=== PATIENT | male | born 1950 | race Caucasian/White ===

== ENCOUNTER 2021-10-07 11:02 | Observation (INO) | payer SELFPAY ==
[2021-10-07] VITALS (20 sets, daily range): BP systolic 119–147; BP diastolic 61–91; PULSE 82–102; RESP 16–18; TEMP 37–37.3; O2SAT 95–100; BMI 27.3; BMI 29.2
--- NOTE | 2021-10-07 11:34 | XR_ITS ---
FINAL REPORT CLINICAL HISTORY: PAIN left tib/fib, as amputation and an abscess and bleeding , prosthetic leg he wears as well FINDINGS: LEFT TIBIA FIBULA Two views were obtained. There is no acute fracture or dislocation. There are postoperative changes from below the knee amputation. Vascular calcification is identified. No acute soft tissue abnormality is identified. IMPRESSION: Postoperative change from below the knee amputation. Reviewed, Interpreted and Dictated by Ramone Chris III, MD Transcribed by Soraya Holguin Authenticated and . [facility]
--- NOTE | 2021-10-07 11:40 | PC.NURSE ---
1140 PT MEDICATED AT THIS TIME, ICE WATER PROVIDED. NO NEEDS VOICED
--- NOTE | 2021-10-07 11:45 | PC.NURSE ---
XR AT BEDSIDE
[2021-10-07 11:49] LABS: Basophils # 0.1 K/mm3 (0-0.2); Basophils % 0.6 % (0.1-2.0); Chloride 88 mmol/L (98-107); Eosinophils # 0.1 K/mm3 (0.0-0.4); Eosinophils % 0.5 % (0.1-12.0); Hematocrit 40.5 % (42.0-52.0); Hemoglobin 13.1 g/dL (14.1-18.0); Lymphocytes # 1.6 K/mm3 (0.7-4.5); Lymphocytes % 12.3 % (10-50); Mean Corpuscular HGB Conc 32.3 g/dL (31.8-35.4); Mean Corpuscular Hemoglobin 25.3 pg (27.0-31.2); Mean Corpuscular Volume 78.3 fl (80-94); Mean Platelet Volume 7.4 fl (7.4-10.4); Monocytes # 0.8 K/mm3 (0.1-1.0); Monocytes % 5.7 % (1.7-9.3); Neutrophils # 10.5 K/mm3 (1.8-7.8); Neutrophils % 80.8 % (37.0-80.0); Platelet Count 503 K/mm3 (142-424); Red Blood Count 5.17 M/mm3 (4.60-6.20)
[2021-10-07 11:50] LABS: Sodium 128 mmol/L (136-145)
[2021-10-07 11:51] LABS: Potassium 4.1 mmoL/L (3.5-5.1)
[2021-10-07 11:52] LABS: Alanine Aminotransferase 24 U/L (12-78); Alkaline Phosphatase 191 U/L (38-126); Anion Gap 12.1 mEq/L (5-15); Aspartate Amino Transferase 24 U/L (17-59); Bilirubin,Total 0.9 mg/dl (0.2-1.3); Blood Urea Nitrogen 8 mg/dl (9-20); Carbon Dioxide 32 mmol/L (22.0-30.0); Creatinine Clearance Estimated 79 mL/min (50-200); Estimated Glomerular Filt Rate 133 ml/min (>60); GFR (African American) 161 ML/MIN (>60)
[2021-10-07 11:54] LABS: Calcium 9.7 mg/dl (8.4-10.2); Globulin 4.1 g/dL (1.3-3.2); Lactic Acid 2.5 mmol/L (0.7-2.1); Total Protein,Serum 8.1 g/dl (6.3-8.2)
[2021-10-07 11:55] LABS: Glucose 616 mg/dl (74-100)
--- NOTE | 2021-10-07 11:55 | PC.NURSE ---
1155 CRITICAL GLUCOSE 616 RECEIVED AT THIS TIME. NAME AND R/V WITH BISI FROM LAB. ED NOTIFIED. ORDERS RECEIVED
--- NOTE | 2021-10-07 12:08 | HMH.EDGENADL ---
ED Disposition Clinical Impression: Abscess of leg, left Disposition: Admitted As Inpatient Condition on Discharge: Fair - Critical Care Critical Care Time: No Attestation: On 10/07/21, the high probability of a clinically significant, sudden or life threatening deterioration of the following system(s) required my full and direct attention, intervention and personal management. The time I documented below is in addition to time spent performing reported procedures but includes the following listed in this critical care notation. Medical Decision Making - Medical Records Medical records reviewed: Yes: I reviewed the patient's medical records. - Ras Inquiry Pt receiving controlled substance: No Vital Signs: 10/07/21 11:03 10/07/21 11:15 10/07/21 11:30 Temperature 98.6 F Temperature Source Oral Pulse Rate 95 H 85 Pulse Rate [Brachial] 95 H Respiratory Rate 18 Blood Pressure 147/91 H 125/69 Blood Pressure [Right Arm] 147/91 H Blood Pressure Mean 103 87 Blood Pressure Mean [Right Arm] 109 Blood Pressure Source [Right Arm] Automatic Cuff Blood Pressure Position [Right Arm] Sitting 02 Sat by Pulse Oximetry 99 98 96 Oxygen Delivery Method Room Air 10/07/21 12:30 10/07/21 13:00 10/07/21 13:30 Temperature Temperature Source Pulse Rate 86 87 84 Pulse Rate [Brachial] Respiratory Rate Blood Pressure 119/68 129/63 119/65 Blood Pressure [Right Arm] Blood Pressure Mean 78 85 83 Blood Pressure Mean [Right Arm] Blood Pressure Source [Right Arm] Blood Pressure Position [Right Arm] 02 Sat by Pulse Oximetry 98 99 97 Oxygen Delivery Method 10/07/21 14:00 10/07/21 14:30 10/07/21 15:00 Temperature Temperature Source Pulse Rate 83 89 83 Pulse Rate [Brachial] Respiratory Rate Blood Pressure 135/72 130/68 134/61 Blood Pressure [Right Arm] Blood Pressure Mean 93 97 90 Blood Pressure Mean [Right Arm] Blood Pressure Source [Right Arm] Blood Pressure Position [Right Arm] 02 Sat by Pulse Oximetry 100 95 98 Oxygen Delivery Method Room Air 10/07/21 15:31 10/07/21 16:01 10/07/21 16:30 Temperature Temperature Source Pulse Rate 82 83 84 Pulse Rate [Brachial] Respiratory Rate Blood Pressure 137/65 138/75 138/73 Blood Pressure [Right Arm] Blood Pressure Mean 89 96 98 Blood Pressure Mean [Right Arm] Blood Pressure Source [Right Arm] Blood Pressure Position [Right Arm] 02 Sat by Pulse Oximetry 97 99 99 Oxygen Delivery Method Room Air Room Air Room Air 10/07/21 17:01 10/07/21 18:00 10/07/21 18:30 Temperature Temperature Source Pulse Rate 89 102 H 97 H Pulse Rate [Brachial] Respiratory Rate Blood Pressure 128/84 119/66 133/67 Blood Pressure [Right Arm] Blood Pressure Mean 105 88 89 Blood Pressure Mean [Right Arm] Blood Pressure Source [Right Arm] Blood Pressure Position [Right Arm] 02 Sat by Pulse Oximetry 98 100 98 Oxygen Delivery Method Room Air 10/07/21 19:00 Temperature Temperature Source Pulse Rate 98 H Pulse Rate [Brachial] Respiratory Rate Blood Pressure 137/64 Blood Pressure [Right Arm] Blood Pressure Mean 88 Blood Pressure Mean [Right Arm] Blood Pressure Source [Right Arm] Blood Pressure Position [Right Arm] 02 Sat by Pulse Oximetry 98 Oxygen Delivery Method - Lab Data Lab results reviewed: Yes: I reviewed the patient's lab results. Lab Results 10/07/21 11:20: WBC 13.0 H, RBC 5.17, Hgb 13.1 L, Hct 40.5 L, MCV 78.3 L, MCH 25.3 L, MCHC 32.3, RDW 15.0, Plt Count 503 H, MPV 7.4, Neut % (Auto) 80.8 H, Lymph % (Auto) 12.3, [place] % (Auto) 5.7, Eos % (Auto) 0.5, Baso % (Auto) 0.6, Neut # (Auto) 10.5 H, Lymph # (Auto) 1.6, [place] # (Auto) 0.8, Eos # (Auto) 0.1, Baso # (Auto) 0.1 10/07/21 11:20: Sodium 128 L, Potassium 4.1, Chloride 88 L, Carbon Dioxide 32 H, Anion Gap 12.1, BUN 8 L, Creatinine 0.60 L, Estimated Creat Clear 79, Estimated GFR 133, Est GFR ( Bonny
--- NOTE | 2021-10-07 12:10 | PC.NURSE ---
1210, PT MEDICATED PER EMAR, FAMILY AT BEDSIDE. UPDATED ON POC. NO NEEDS AT THIS TIME
--- NOTE | 2021-10-07 12:55 | PC.NURSE ---
1255 PT RESTING COMFORTABLY, IV INFUSING WITHOUT DIFFICULTY. FAMILY AT BEDSIDE. UPDATED ON POC.
--- NOTE | 2021-10-07 13:00 | PC.NURSE ---
rounded on pt at this time, mother at BS. states no needs at this time. pt currently playing on cell phone.
--- NOTE | 2021-10-07 13:03 | PC.NURSE ---
MD Shaina AT BEDSIDE TO REEVALUATE PT AND UPDATE FAMILY 1303 FSBS 501MD NOTIFIED AND LAB CALLED TO COLLECT GLUCOSE, NO NEW ORDERS
[2021-10-07 13:08] LABS: POC Glucose,Bedside 501 (70-110)
--- NOTE | 2021-10-07 13:09 | PC.NURSE ---
pop [facility] Hospitalist for consult for possible admission
[2021-10-07 13:14] LABS: Coronavirus 19, PCR Not Detected (NotDetected); Influenza A, PCR Not Detected (NotDetected); Influenza B, PCR Not Detected (NotDetected)
--- NOTE | 2021-10-07 13:25 | PC.NURSE ---
JAIDEN MAR spoke with dr. thorne hospitalist at [facility], states they would likely accept pt but they need to contact the sanitation tank washer surgeon for dr cummins and then they would contact us back. Stated if accepted pt would be placed on waiting list but they believe they will likely have a bed for pt today.
--- NOTE | 2021-10-07 13:41 | PC.NURSE ---
per ER MD verbal order vancomycin dosing and zosyn per pharmacy dosing spoke with Trevin in pharmacy Trevin suggested cefepime rather than zosyn ER okayed this.
--- NOTE | 2021-10-07 13:43 | PC.NURSE ---
per [facility] pt is on waiting list requested a face sheet
[2021-10-07 13:45] LABS: Glucose,Random 407 mg/dL (74-100)
--- NOTE | 2021-10-07 13:45 | PC.NURSE ---
Lab called and advised pt random glucose is 407. Repeated and verified with lab. Notified
--- NOTE | 2021-10-07 14:29 | HMH.PHACONS ---
- Pharmacy Consult Date: 10/07/21 Time: 14:29 Referring provider: DR. VELASCO Reason for Consult:: VANCOMYCIN DOSING Allergies and ADEs:: Allergies Allergy/AdvReac Type Severity Reaction Status Date / Time No Known Allergies Allergy Verified 10/07/21 11:33 Home Medications:: Home Medications Medication Instructions Recorded Confirmed Type Aspirin [Aspirin 81mg EC Tab] 81 mg PO DAILY 10/07/21 10/07/21 History Atorvastatin Calcium [Lipitor 40mg 40 mg PO HS 10/07/21 10/07/21 History Tablet*] Ferrous Sulfate [Ferosul] 325 mg PO DAILY 10/07/21 10/07/21 History Insulin Detemir [Levemir 18 unit SQ HS 10/07/21 10/07/21 History 100units/mL 3mL flexpen] Metformin HCl 500 mg PO BID 10/07/21 10/07/21 History Metoprolol Succinate [Metoprolol 50 mg PO BID 10/07/21 10/07/21 History Succinate 100mg Tablet*] Pantoprazole Sodium [Protonix 40mg 40 mg PO HS 10/07/21 10/07/21 History tablet] Sertraline HCl [Zoloft] 25 mg PO DAILY 10/07/21 10/07/21 History Height: 1.73 m Weight: 81.647 kg Laboratory Results:: Laboratory Results - last 24 hr 10/07/21 11:20: WBC 13.0 H, RBC 5.17, Hgb 13.1 L, Hct 40.5 L, MCV 78.3 L, MCH 25.3 L, MCHC 32.3, RDW 15.0, Plt Count 503 H, MPV 7.4, Neut % (Auto) 80.8 H, Lymph % (Auto) 12.3, [place] % (Auto) 5.7, Eos % (Auto) 0.5, Baso % (Auto) 0.6, Neut # (Auto) 10.5 H, Lymph # (Auto) 1.6, [place] # (Auto) 0.8, Eos # (Auto) 0.1, Baso # (Auto) 0.1 10/07/21 11:20: Sodium 128 L, Potassium 4.1, Chloride 88 L, Carbon Dioxide 32 H, Anion Gap 12.1, BUN 8 L, Creatinine 0.60 L, Estimated Creat Clear 79, Estimated GFR 133, Est GFR ( Amer) 161, Glucose 616 H*, Calcium 9.7, Total Bilirubin 0.9, AST 24, ALT 24, Alkaline Phosphatase 191 H, Total Protein 8.1, Albumin 4.0, Globulin 4.1 H, Albumin/Globulin Ratio 1.0 L 10/07/21 11:20: Lactate 2.5 H 10/07/21 13:01: POC Glucose 501 H* 10/07/21 13:20: Random Glucose 407 H* Assessment and Plan - Assessment and plan all Dx Assessment and Plan for all problems:: Pharmacokinetic dosing service Objective: Patient: Floor: Age: 71 yo Serum creatinine: 0.60 mg/dL Height: 68.0 Inches Weight (kg): 81.6 Assessment: IBW (kg): 68.40 Dosing wt(kg): 81.6 Estimated Creatinine clearance (ml/min): 110.8 CRCL method: Cockcroft and Gault using ibw(default). Drug selected: Vancomycin Loading dose (mg): Vd (liters): 61.2 (factor used: 0.75 L/kg) Norbert (hr-1): 0.096 Half life (hrs): 7.22 CLvanco=?? 5.875 L/hr Recommended dose: 1750 mg Interval: 12 hrs Infusion time (hrs): 2.0 Predicted peak (mcg/mL): 38.0 Predicted trough (mcg/mL): 14.55 Total body weight is being used for vancomycin dosing. Recommendations: Give Vancomycin 1750 mg q 12 hrs with an expected Cpeak of 38.0 mcg/ml and an expected Ctrough of 14.55 mcg/ml AUC 0-24 /ROSALIO Data: ROSALIO 0.5 mcg/mL:?? AUC/ROSALIO:? 1191.5 ROSALIO 1.0 mcg/mL:?? AUC/ROSALIO:? 595.7 --------- ROSALIO 1.5 mcg/mL:?? AUC/ROSALIO:? 397.2 ROSALIO 2.0 mcg/mL:?? AUC/ROSALIO:? 297.9 Thank you for the consult, will continue to follow. -ELLEN ANDERSON, ERICAD
--- NOTE | 2021-10-07 14:32 | PC.NURSE ---
spoke with family who advised they would like to stay here if possible. Calling Dr. Chou at this time. speaking with Dr. hCou at this time
--- NOTE | 2021-10-07 14:36 | PC.NURSE ---
Soraya Barrientos made rounds and helped pt with simple needs
--- NOTE | 2021-10-07 14:37 | PC.NURSE ---
ED MD SPEAKING WITH DR. GARCIA ABOUT ADMISSION. DR. GARCIA STATES HE WILL BE TO ED TO EVALUATE PT FOR ADMISSION
--- NOTE | 2021-10-07 14:40 | PC.NURSE ---
Dr. Chou at bedside
--- NOTE | 2021-10-07 14:40 | PC.NURSE ---
DR. GARCIA AT BEDSIDE
--- NOTE | 2021-10-07 14:45 | PC.NURSE ---
Notified care management of admission
--- NOTE | 2021-10-07 14:46 | PC.NURSE ---
DR GARCIA HAS AGREED TO ADMIT PT
--- NOTE | 2021-10-07 14:47 | PC.NURSE ---
Dr. Chou asked that we speak with the surgeon production control scheduler to see if they would like to consult on the patient or they would like us to consult with ortho. Calling Dr. Logan office's at this time. They advised he was in surgery, called pre-op he was not up there. Called turning sander operator and asked them to page him.
--- NOTE | 2021-10-07 14:54 | PC.NURSE ---
ELIDA MAR SPEAKING WITH DR. EUBANKS
--- NOTE | 2021-10-07 14:56 | PC.NURSE ---
requesting ortho consult. Calling Dr. Arenas office at this time
--- NOTE | 2021-10-07 14:57 | HMH.PHAINT ---
MEDICATION RECONCILIATION COMPLETED ON PATIENT USING EXTERNAL FILL HISTORY FROM PHARMACY. -ELLEN ANDERSON, ERICAD
--- NOTE | 2021-10-07 14:58 | PC.NURSE ---
Called pre-op and they advised was in surgery, asked for him to call the ER when he became available. advised she would let him know. Notified ER
--- NOTE | 2021-10-07 15:11 | PC.NURSE ---
Dr. Chou asked that we call him back after speaking with Dr. Arenas. Notified JAIDEN MAR
--- NOTE | 2021-10-07 15:15 | PC.NURSE ---
Addendum entered by Amy Meza RN 10/07/21 15:16: Both were agreeable and no new needs at this time. Original Note: Updated pt and son on POC and that we were waiting on Dr. Arenas to call us back.
[2021-10-07 15:43] LABS: Reflex Lactic Add Lactic Reflex
--- NOTE | 2021-10-07 15:43 | PC.NURSE ---
speaking with DR. Arenas at this time
--- NOTE | 2021-10-07 15:45 | PC.NURSE ---
checked on pt at this time, vancomycin started. Family at BS. Pt states no needs at this time.
--- NOTE | 2021-10-07 15:47 | PC.NURSE ---
spoke with Dr. Arenas, he requested that he come down to ED and see pt. Dr. Arenas advised he would be the consulting physician on the case and would see the patient on the floor later. I called Dr. Chou and let him know that Dr. Arenas had agreed to consult on pt and would see him on the floor and was not coming to ED at this time. Dr. Chou advised that would be ok and to proceed on with the admission.
[2021-10-07 16:42] LABS: Lactic Acid Follow Up (RFLX 1) 1.2 mmol/L (0.7-2.1)
--- NOTE | 2021-10-07 16:45 | PC.NURSE ---
per [facility] pt is boarding in ER until a bed is available.
--- NOTE | 2021-10-07 16:49 | PC.NURSE ---
[facility] called at this time with a bed assignment, notified pt of them having a bed, pt reports he does not wish to be transferred he wants to be admitted here at [facility].
--- NOTE | 2021-10-07 16:53 | PC.NURSE ---
Gave pt remote, offered warm blankets, updated him on room status. Spoke with Dr. Arenas about pt eating and he advised that he would not be doing any procedure this evening. Called dietary and ordered pt diabetic tray.
[2021-10-07 17:08] LABS: POC Glucose,Bedside 406 (70-110)
--- NOTE | 2021-10-07 17:25 | PC.NURSE ---
Pt sitting up in bed eating supper tray. Updated pt that he would be going to room 214 after room became available and was cleaned. Pt agreeable with POC and has no other needs at this time.
--- NOTE | 2021-10-07 18:09 | HMH.HP ---
*Admission Date: 10/07/21 *Chief complaint: Infection of leg *History of present illness: This 71-year-old white male diabetic presents in the emergency room at [facility] with complaints of an infected left leg. 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 This surgery was approximately 1 year ago according to the patient. The surgery was performed at [facility] by Dr. Dickinson. The patient is an insulin-dependent diabetic. He states that he is a patient of Dr. Jorge in [place]. He has been living with his son in [facility]. Dr. Chou saw the patient in the emergency room and I found the wound to be AN 8 cm circumscribed area of discoloration with central excoriation and drainage. Brownish-red drainage could be expressed by pushing around the wound. The wound is on the posterior aspect of the leg just proximal to the knee. This wound very likely could have resulted from pressure or rubbing from his prosthesis. Dr. Arenas orthopedics was notified of the patient. He plans to see him on admission. This wound will likely require incision and drainage. X-ray of the leg will also be obtained. [facility] History I have reviewed the patient's past medical history: Yes Medical History: Reports:: Diabetes Mellitus Type 2 (7 or 8 years) Denies:: Aneurysm *Have you ever received a pneumonia vaccine?: Yes *Have you received a flu vaccine this season?: Yes Other Medical History: Reports: Arthritis (hands) Laterality Cases: Left: Other (BKA) Other Surgeries: Yes: CABG (2007) Amputation: Yes (L BKA with a prosthesis) - *Social History Last grade of school completed: High school graduate Smoking Status: Never smoker Alcohol Intake: current Alcohol Intake Frequency:: holidays/special occasions only Substance Use Type: denies use *Occupational Status:: disabled (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 2 sisters. A son and a daughter. Review of Systems - Constitutional Denies body ache(s), Denies chills, Denies fever(s) - Eyes Denies change in vision - *Cardiovascular Denies chest pain - *Respiratory Denies chest congestion, Denies cough, Denies shortness of breath - *Gastrointestinal Reports constipation, Denies abdominal pain - *Genitourinary Denies difficulty urinating - Integumentary/Breasts Denies bleeding lesions - *Neurologic Denies dizziness, Denies frequent falls - Psychiatric Denies anxiety - Endocrine Denies excessive sweating - Hematologic/Lymphatic Denies easy bleeding Meds Home Medications Medication Instructions Recorded Confirmed Type Aspirin [Aspirin 81mg EC Tab] 81 mg PO DAILY 10/07/21 10/07/21 History Atorvastatin Calcium [Lipitor 40mg 40 mg PO HS 10/07/21 10/07/21 History Tablet*] Ferrous Sulfate [Ferosul] 325 mg PO DAILY 10/07/21 10/07/21 History Gabapentin [Neurontin 300mg 300 mg PO DAILY 10/07/21 10/07/21 History capsule] Insulin Detemir [Levemir 18 unit SQ DAILY 10/07/21 10/07/21 History 100units/mL 3mL flexpen] Metformin HCl 1,000 mg PO BID 10/07/21 10/07/21 History Metoprolol Tartrate [Lopressor 50 mg PO BID 10/07/21 10/07/21 History 50mg tablet] Pantoprazole Sodium [Protonix 40mg 40 mg PO HS 10/07/21 10/07/21 History tablet] Ropinirole HCl [Requip 1mg tablet] 1 mg PO HS 10/07/21 10/07/21 History Sertraline HCl [Zoloft] 25 mg PO DAILY 10/07/21 10/07/21 History Trazodone HCl 50 mg PO HS 10/07/21 10/07/21 History Allergies Allergy/AdvReac Type Severity Reaction Status Date / Time No Known Allergies Allergy Verified 10/07/21 11:33 Exam Vital signs and Labs for Last 24 Hours: Temp Pulse Resp BP Pulse Ox 98.6 F 89 18 128/84 98 10/07/21 11:03 10/07/21 17:01 10/07/21 11:03 10/07/21 17:01 10/07/21 17:01 Laboratory Results - last 24 hr 10/07/21 11:20:
--- NOTE | 2021-10-07 18:21 | PC.NURSE ---
DR. GARCIA AT BEDSIDE
--- NOTE | 2021-10-07 18:42 | PC.NURSE ---
CHECKED ON PT HE WANTED BLANKET AND IS GETTING ANXIOUS ABOUT WANTING TO GO TO HIS ROOM
--- NOTE | 2021-10-07 18:57 | PC.NURSE ---
FINGER STICK BEING DONE
--- NOTE | 2021-10-07 19:01 | PC.NURSE ---
FS 334
[2021-10-07 19:39] LABS: Hemoglobin A1C > 14.0 % (4.0-6.0)
[2021-10-07 19:44] LABS: POC Glucose,Bedside 334 (70-110)
[2021-10-07 20:44] LABS: Thyroid Stimulating Hormone 1.21 uIU/mL (0.465-4.68)
[2021-10-07 21:03] LABS: Vitamin B12 487 pg/mL (239-931)
--- NOTE | 2021-10-07 21:50 | PC.NURSE ---
pt arrived to the unit at 2054
--- NOTE | 2021-10-07 23:03 | PC.NURSE ---
pt has prosthetic leg at bedside
[2021-10-08] VITALS (21 sets, daily range): BP systolic 107–159; BP diastolic 52–76; PULSE 70–90; RESP 14–17; TEMP 36.7–43; O2SAT 94–98; BMI 29.2
--- NOTE | 2021-10-08 05:28 | PC.NURSE ---
Pt has rested well t/o the night. No complaints of pain, no fever noted. Pt L BKA redenned, weeping. Towel placed under stump. VSS. NO acute changes or distress noted. Remains NPO for ortho consult. Urinating per urinal without difficulty. Will continue to monitor.
--- NOTE | 2021-10-08 07:33 | P.CONPHA_ITS ---
[facility] Pharmacy VTE Monitoring - Patient Demographics Admission date: 10/07/21 Report Date: 10/08/21 Time: 07:33 Allergies/Adverse Reactions: Patient Allergies No Known Allergies Allergy (Verified 10/07/21 11:33) Height: 1.73 m Weight: 87.362 kg Patient Problems: Current Active Problems Cellulitis and abscess of leg (Acute) Type 2 diabetes mellitus (Acute) Peripheral vascular disease in diabetes mellitus (Acute) Hx of CABG (Acute) Abscess of leg, left (Acute) - VTE Risk Labs: VTE Related Lab Results Hgb 13.1 g/dL (14.1-18.0) L 10/07/21 11:20 Hct 40.5 % (42.0-52.0) L 10/07/21 11:20 Plt Count 503 K/mm3 (142-424) H 10/07/21 11:20 BUN 8 mg/dl (9-20) L 10/07/21 11:20 Creatinine 0.60 mg/dl (0.66-1.25) L 10/07/21 11:20 Estimated Creat Clear 79 mL/min (50-200) 10/07/21 11:20 - Prophylaxis VTE Prophylaxis Ordered?: Yes Types of VTE Prophylaxis: TEDS Knee High Location of Applied Device: Right Leg
--- NOTE | 2021-10-08 07:50 | HMH.ACPN2 ---
Internal Medicine - PN: Subj *Date: 10/08/21 *Time: 07:50 Interval history: Patient does have some left leg discomfort. He continues to drain purulent bloody drainage. He is voiding QS. He denies chest pain or shortness of breath. He eats without difficulty. Currently he is n.p.o. for orthopedic visit. Blood sugars have been running high and will increase sliding scale to high intensity. Labs have been ordered. X-ray of left tibia/fibula yesterday reveals postoperative change from below the knee amputation. Vascular calcification identified. No acute soft tissue abnormality. Exam Vital signs and Labs for Last 24 Hours: Temp Pulse Resp BP Pulse Ox 98.0 F 79 17 112/60 97 10/08/21 04:00 10/08/21 04:00 10/08/21 04:00 10/08/21 04:00 10/08/21 04:00 Laboratory Results - last 24 hr 10/07/21 11:20: WBC 13.0 H, RBC 5.17, Hgb 13.1 L, Hct 40.5 L, MCV 78.3 L, MCH 25.3 L, MCHC 32.3, RDW 15.0, Plt Count 503 H, MPV 7.4, Neut % (Auto) 80.8 H, Lymph % (Auto) 12.3, [place] % (Auto) 5.7, Eos % (Auto) 0.5, Baso % (Auto) 0.6, Neut # (Auto) 10.5 H, Lymph # (Auto) 1.6, [place] # (Auto) 0.8, Eos # (Auto) 0.1, Baso # (Auto) 0.1 10/07/21 11:20: Sodium 128 L, Potassium 4.1, Chloride 88 L, Carbon Dioxide 32 H, Anion Gap 12.1, BUN 8 L, Creatinine 0.60 L, Estimated Creat Clear 79, Estimated GFR 133, Est GFR ( Amer) 161, Glucose 616 H*, Calcium 9.7, Total Bilirubin 0.9, AST 24, ALT 24, Alkaline Phosphatase 191 H, Total Protein 8.1, Albumin 4.0, Globulin 4.1 H, Albumin/Globulin Ratio 1.0 L 10/07/21 11:20: Lactate 2.5 H 10/07/21 13:01: POC Glucose 501 H* 10/07/21 13:11: SARS-CoV-2 (PCR) Not detected, Influenza A Untype (PCR) Not detected, Influenza Type B (PCR) Not detected 10/07/21 13:20: Random Glucose 407 H* 10/07/21 13:20: Hemoglobin A1c > 14.0 H 10/07/21 13:20: Vitamin B12 487, TSH 1.21 10/07/21 16:22: Lactate 1.2 10/07/21 17:00: POC Glucose 406 H* 10/07/21 19:00: POC Glucose 334 H* I & O for Last 24 hours: Intake & Output 10/05/21 10/06/21 10/07/21 10/08/21 11:59 11:59 11:59 11:59 Intake Total 610 / 610 Output Total 800 / 800 Balance -190 / -190 Weight 180 lb 192 lb 9.6 oz Microbiology Reports for the Last 24 Hours: Microbiology 10/07/21 11:40 Leg,Left - Abscess Gram Stain - Final 10/07/21 11:40 Leg,Left - Abscess Wound Culture - Preliminary - Constitutional no acute distress Comments: Sitting up in the bed and appears comfortable - *Routine Respiratory Exam Present: CTA bilaterally (Anteriorly and posteriorly) - *Routine Cardiovascular Exam Present: RRR - *Routine Abdominal Exam Present: soft, normoactive bowel sounds. Absent: tenderness - *Routine Extremities Exam Present: edema Comments: Left leg. Draining wound noted above left popliteal. - *Routine Neurological Exam Present: alert, oriented X3 Assessment and Plan (1) Cellulitis and abscess of leg Status: Acute Category: Medical Code(s): L03.119 - Cellulitis of unspecified part of limb; L02.419 - Cutaneous abscess of limb, unspecified (2) Type 2 diabetes mellitus Status: Acute Category: Medical Code(s): E11.9 - Type 2 diabetes mellitus without complications (3) Peripheral vascular disease in diabetes mellitus Status: Acute Category: Medical Code(s): E11.51 - Type 2 diabetes mellitus with diabetic peripheral angiopathy without gangrene (4) Hx of CABG Status: Acute Category: Surgical Code(s): Z95.1 - Presence of aortocoronary bypass graft (5) History of left below knee amputation Status: Chronic Category: Medical Code(s): Z89.512 - Acquired absence of left leg below knee - Assessment and plan all Dx Assessment and Plan for all problems:: Patient is currently on IV cefepime and vancomycin. He is n.p.o. for orthopedic consult. Sliding scale increased to high intensity. Culture results are pending.
[2021-10-08 08:55] LABS: Basophils # 0.1 K/mm3 (0-0.2); Basophils % 0.5 % (0.1-2.0); Eosinophils # 0.2 K/mm3 (0.0-0.4); Eosinophils % 1.1 % (0.1-12.0); Hematocrit 35.6 % (42.0-52.0); Lymphocytes # 1.7 K/mm3 (0.7-4.5); Lymphocytes % 13.4 % (10-50); Mean Corpuscular HGB Conc 32.7 g/dL (31.8-35.4); Mean Corpuscular Hemoglobin 24.7 pg (27.0-31.2); Mean Corpuscular Volume 75.6 fl (80-94); Mean Platelet Volume 6.9 fl (7.4-10.4); Monocytes # 0.7 K/mm3 (0.1-1.0); Monocytes % 5.5 % (1.7-9.3); Neutrophils # 10.3 K/mm3 (1.8-7.8); Neutrophils % 79.5 % (37.0-80.0); Platelet Count 433 K/mm3 (142-424); Red Blood Count 4.71 M/mm3 (4.60-6.20); Red Cell Distribution Width 15.2 % (11.5-17.5)
[2021-10-08 09:00] LABS: Alanine Aminotransferase 14 U/L (12-78); Albumin/Globulin Ratio 0.9 (1.1-1.8); Alkaline Phosphatase 148 U/L (38-126); Anion Gap 10.1 mEq/L (5-15); Aspartate Amino Transferase 17 U/L (17-59); Bilirubin,Total 0.5 mg/dl (0.2-1.3); Blood Urea Nitrogen 9 mg/dl (9-20); Calcium 8.9 mg/dl (8.4-10.2); Carbon Dioxide 29 mmol/L (22.0-30.0); Chloride 94 mmol/L (98-107); Creatinine Clearance Estimated 85 mL/min (50-200); Estimated Glomerular Filt Rate 133 ml/min (>60); GFR (African American) 161 ML/MIN (>60); Globulin 3.5 g/dL (1.3-3.2); Glucose 313 mg/dl (74-100); Potassium 4.1 mmoL/L (3.5-5.1); Sodium 129 mmol/L (136-145); Total Protein,Serum 6.5 g/dl (6.3-8.2)
[2021-10-08 09:11] LABS: Hemoglobin 11.6 g/dL (14.1-18.0)
--- NOTE | 2021-10-08 09:33 | MR_ITS ---
FINAL REPORT CLINICAL HISTORY: rule out osteomyelitis, pt has wound to back of knee with drainage. 17ml prohance injected FINDINGS: Multiplanar MR imaging of the left knee was performed with and without contrast. The medial and lateral menisci are intact without evidence of meniscal tear. The anterior and posterior cruciate ligaments are intact. The medial collateral ligament and lateral ligamentous complex are intact. The patellar and quadriceps tendons are intact. There is no evidence of fracture. No focal abnormality is identified of the articular cartilage. No significant joint effusion is seen. There is a posterior collection of fluid with peripheral contrast enhancement posterior to the semimembranosus muscle. Collection measures 8.8 by 3.8 x 0.9 cm and could represent a seroma, chronic hematoma, or abscess. A small knee joint effusion is present. There is abnormal signal and contrast enhancement in the posterior semimembranosus muscle which is likely inflammatory. IMPRESSION: Posterior collection of fluid with peripheral contrast enhancement may represent a seroma, chronic hematoma, or abscess. Abnormal signal and contrast enhancement of the posterior semimembranosus muscle is likely inflammatory. Reviewed, Interpreted and Dictated by Ramone Chris III, MD Transcribed by Per Tiwari Authenticated and [facility]
[2021-10-08 09:36] LABS: Erythrocyte Sedimentation Rate 61 mm/hr (0-20)
[2021-10-08 09:56] LABS: C-Reactive Protein 214.3 mg/L (0-4)
--- NOTE | 2021-10-08 10:28 | HMH.ORTHOCON ---
*Admission Date: 10/07/21 <Teresa Seo 10/08/21 10:29> *Reason for consult:: left leg wound, cellulitis <Teresa Seo 10/08/21 10:29> *History of present illness: Mr. Vergara is a 71-year-old male who presented to the [facility] emergency department secondary to increased drainage/an open wound present on the posterior aspect of his left residual limb. He is status post left below the knee amputation that he states was performed approximately 1 year ago at [facility] in [place], [place] by Dr. Dickinson secondary to complications with poor wound healing. He reports that he is unsure of how long the wound has been present, however he is noticed purulent drainage coming from the back of his knee for the past 3-4 days. He denies any history of fevers, chills, or rigors. At baseline he ambulates with the use of a prosthetic limb that he was fitted for by [facility] in [place], [place]. He reports that he had adjustments made to his prosthesis approximately 1 week ago. He lives with his son in [place]. His primary care physician is Dr. Jorge in [place]. His past medical history is significant for insulin-dependent diabetes mellitus, peripheral vascular disease, and CABG performed in 2007. He is a non-smoker. He has not had anything to eat or drink since yesterday evening. He denies any other symptoms or concerns at this time. <Teresa Seo 10/08/21 10:45> [facility] History Medical History: Reports:: Diabetes Mellitus Type 2 (7 or 8 years), Peripheral Vascular Disease Denies:: Aneurysm <Teresa Seo 10/08/21 10:29> *Have you ever received a pneumonia vaccine?: Yes <Teresa Seo 10/08/21 10:29> *Have you received a flu vaccine this season?: Yes <Teresa Seo 10/08/21 10:29> Other Medical History: Reports: Arthritis (hands) <Teresa Seo 10/08/21 10:29> Laterality Cases: Left: Other (BKA) <Teresa Seo 10/08/21 10:29> Other Surgeries: Yes: CABG (2007) <Teresa Seo 10/08/21 10:29> Amputation: Yes (L BKA with a prosthesis) <Teresa Seo 10/08/21 10:29> - *Social History Last grade of school completed: High school graduate <Tereas Seo 10/08/21 10:29> Smoking Status: Never smoker <Teresa Seo 10/08/21 10:29> Alcohol Intake: current <Teresa Seo 10/08/21 10:29> Alcohol Intake Frequency:: holidays/special occasions only <Teresa Seo 10/08/21 10:29> Substance Use Type: denies use <Teresa Seo 10/08/21 10:29> *Occupational Status:: disabled (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[employer]) <Teresa Seo 10/08/21 10:29> *Travel in the last 8 weeks: None <Teresa Seo 10/08/21 10:29> Family Hx:: Diabetes (Father), Heart Attack (Father) <Teresa Seo 10/08/21 10:29> Review of Systems - Review of Systems Review of systems:: pertinent systems reviewed and negative unless documented below <Teresa Seo 10/08/21 10:45> - Constitutional Denies anorexia, Denies body ache(s), Denies chills, Denies fatigue, Denies fever(s), Denies malaise, Denies night sweats <Teresa Seo 10/08/21 10:45> - Eyes Denies change in vision <Teresa Seo 10/08/21 10:45> - ENT Denies poor balance, Denies dizziness, Denies nasal congestion, Denies neck pain, Denies sore throat <Teresa Seo 10/08/21 10:45> - *Cardiovascular Denies chest pain, Denies chest pain at rest, Denies shortness of breath, Denies shortness of breath with activity, Denies radiating jaw, neck or arm pain <Teresa Seo 10/08/21 10:45> - *Respiratory Denies chest congestion, Denies cough, Denies shortness of breath, Denies pain on inspiration, Denies pain with cough, Denies wheezing <Teresa Seo - 10/08/21 10:45> - *Gastrointestinal Denies abdominal pain, Denies change in bowel habits, Denies change in stools, Denies constipation, Denies loose stools, Denies loose stools, Denies nausea, Denies vomi
[2021-10-08 12:07] LABS: POC Glucose,Bedside 355 (70-110)
--- NOTE | 2021-10-08 16:19 | SUR.PREOP ---
1545- pt straight to OR from his room 210 at this time.
--- NOTE | 2021-10-08 17:02 | HMH.ANESCL ---
[facility] Anesthesia Checklist - Patient Identification Patient Identification: Arm Band - Structural Data Admitted From: Home Planned Operative Procedure/s: I&D Left Lower Extremity Abscess Consent for Planned Operative Procedure(s) Verified: Yes Verified Documents: Surgical Consent, History and Physical - NPO Status Verified Time NPO: 00:00 - Additional verifications Anesthesia Reactions: No - Airway Assessment C-Spine Mobility Assessed: Yes (mp2) TMJ Mobility Assessed: Yes Dentition: Poor Dentition - Neurological Assessment Level of Consciousness: Awake, Alert - Anesthesia Plan Anesthesia Risk discussed: Yes Anesthesia Plan: Verified ASA Class: III Anesthesia Type: General [facility] History I have reviewed the patient's past medical history: Yes Medical History: Reports:: Diabetes Mellitus Type 2 (7 or 8 years), Peripheral Vascular Disease Denies:: Aneurysm *Have you ever received a pneumonia vaccine?: Yes *Have you received a flu vaccine this season?: Yes Other Medical History: Reports: Arthritis (hands) Anesthesia experience/problems:: nac Laterality Cases: Left: Other (BKA) Other Surgeries: Yes: CABG (2007) Amputation: Yes (L BKA with a prosthesis) - *Social History Last grade of school completed: High school graduate Smoking Status: Never smoker Alcohol Intake: current Alcohol Intake Frequency:: holidays/special occasions only Substance Use Type: denies use *Occupational Status:: disabled (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
--- NOTE | 2021-10-08 17:03 | P.PN_ITS ---
[facility] Anesthesia Record Part I Intake, IV Amount: 400 Estimated blood loss (mL): 10 Urine output (mL): 0 Blood Pressure: 139/61 SaO2: 97 Pulse Rate: 74 Respiratory Rate: 16 Temperature: 98.3 F Patient is:: Drowsy, Stable Stable to PACU at:: 16:55
[2021-10-08 17:14] LABS: POC Glucose,Bedside 191 (70-110)
--- NOTE | 2021-10-08 17:20 | HMH.OPNOTE ---
Date of procedure: 10/08/21 Pre-op Diagnosis:: Abscess, left thigh Post-op Diagnosis:: Same Procedure performed:: Incision and drainage/debridement abscess, left thigh Surgeon:: Ricki Arenas MD Corporate Compliance Officer(s):: Teresa Seo PA-C FORTUNE TELLER:: Rob Bergman Anesthesia: GETA Estimated blood loss (mL): 10 Clinical Note:: Patient is a 71-year-old male patient with multiple medical problems admitted to hospital for management of abscess/cellulitis over the posterior aspect of the left distal thigh. Patient states that he developed pain and swelling with discharging wound over the posterior aspect of the left distal thigh about 3 days ago. He was seen in the ER yesterday and was admitted to hospital for further management. Patient was started on IV antibiotics after admission. No history of any fevers, chills, or rigors. He is status post left below the knee amputation that he states was performed approximately 1 year ago at [facility] in [place], [place] by Dr. Dickinson secondary to complications with poor wound healing. At baseline he ambulates with the use of a prosthetic limb that he was fitted for by [facility] in [place], [place]. He reports that he had problems with the prosthetic limb with the top of the prosthetic rubbing/causing irritation of skin over the posterior aspect of the thigh. He reports that he had adjustments made to his prosthesis about 1 week ago. He reports that he is unsure of how long the wound has been present but states he has noticed purulent drainage coming from the back of his knee for the past 3-4 days. He denies any history of fevers, chills, or rigors. He lives with his son in [facility]. His primary care physician is Dr. Jorge in [place]. Patient is a known diabetic which is poorly controlled. His past medical history is significant for insulin-dependent diabetes mellitus, peripheral vascular disease, and CABG performed in 2007. He is a non-smoker. Evaluation confirmed a chronic appearing wound measuring about 2 x 2 cm over the posterior aspect of the distal thigh over the medial hamstrings. There were unhealthy granulation tissue over the wound with purulent drainage. There was surrounding erythema, tenderness and swelling over the posterior aspect of the distal left thigh and associated with cellulitis. Imaging of his lower extremity showed soft tissue swelling without any bony involvement. He was admitted for management of the same including IV antibiotics and incision and drainage/debridement. Incision and drainage/debridement of the abscess is indicated to treat the infection, improve the pain and function and is the standard of care for his management. Please refer to orthopedic consult note for full details. Operative findings:: A chronic appearing wound over the posterior aspect of the distal thigh overlying the medial hamstring tendons. The edges of the skin were adherent to the deep tissue with the unhealthy granulation tissue over the base. Active pus drainage was noted coming from the proximal aspect of the wound. After making an incision extending proximally, a large abscess cavity was noted, extending proximally along the medial hamstring muscles/tendons. About 10-15 cc of joesph pus was drained. The semitendinosus tendon was completely torn, infected and necrotic. Both ends of the torn and necrotic tendon were excised. The cavity is extending proximally through the subcutaneous and along the medial hamstring tendons/muscles. There is extensive soft tissue swelling and induration and cellulitis over the distal thigh. No obvious bone or joint involvement is noted. Operative note:: On the day of the procedure the patient was met on the floor, and I have discussed the diagnosis, natural history and management options in detail including both nonsurgical and surgical. Patient opted for surgical remediation in the form of incision and drainage of the abscess. I have discuss
--- NOTE | 2021-10-08 17:32 | SUR.PHASEI ---
1725- detailed report called to neida walls on [facility] floor. pt left in room, in stable condition.
--- NOTE | 2021-10-08 17:34 | SUR.PHASEI ---
1655- pt blood sugar at this time taken via finger stick is 191.
--- NOTE | 2021-10-08 19:45 | PC.NURSE ---
since obtaining care of this patient he has done well. no complaints this shift. appetite is good tolerating his diabetic diet well. needs assistance with transfers. dressing intact from surgery. new iv placed in r forearm 20 gauge.
[2021-10-09] VITALS (8 sets, daily range): BP systolic 115–136; BP diastolic 47–76; PULSE 69–87; RESP 14–18; TEMP 36.5–36.8; O2SAT 95–99; BMI 28.9
--- NOTE | 2021-10-09 04:00 | PC.NURSE ---
pt rested well through the night with no reported pain to operative side, left stump with paresh wrap/dressing CDI s/p I&D; VSS post operativel; pt is alert and oriented x4; lungs clear to diminished, no other issues or concerns at this time.
[2021-10-09 05:18] LABS: POC Glucose,Bedside 329 (70-110)
[2021-10-09 06:59] LABS: POC Glucose,Bedside 264 (70-110)
--- NOTE | 2021-10-09 07:41 | P.PN_ITS ---
[facility] Anesthesia Record Part II Discharge Time: 17:25 Destination: Medical Surgical Department PACU nurse assessment reviewed?: Yes Patient Condition:: Good Anesthesia Complications:: None Swallowing reflex intact?: Yes Cyanosis?: No Blood Pressure: 115/76 Pulse Rate: 84 Temperature: 98.2 F Mental Status: Alert & Oriented Pain level:: 0 Nausea and/or vomitting:: None Intake, IV Amount: 0
[2021-10-09 07:49] LABS: Basophils # 0.1 K/mm3 (0-0.2); Basophils % 0.4 % (0.1-2.0); Eosinophils # 0.1 K/mm3 (0.0-0.4); Eosinophils % 0.7 % (0.1-12.0); Hematocrit 35.5 % (42.0-52.0); Hemoglobin 11.2 g/dL (14.1-18.0); Lymphocytes % 14.2 % (10-50); Mean Corpuscular HGB Conc 31.5 g/dL (31.8-35.4); Mean Corpuscular Hemoglobin 24.1 pg (27.0-31.2); Mean Corpuscular Volume 76.4 fl (80-94); Mean Platelet Volume 6.7 fl (7.4-10.4); Monocytes # 0.8 K/mm3 (0.1-1.0); Monocytes % 5.4 % (1.7-9.3); Neutrophils # 11.4 K/mm3 (1.8-7.8); Neutrophils % 79.4 % (37.0-80.0); Platelet Count 485 K/mm3 (142-424); Red Blood Count 4.65 M/mm3 (4.60-6.20); Red Cell Distribution Width 15.2 % (11.5-17.5); White Blood Count 14.4 K/mm3 (4.8-10.8)
[2021-10-09 07:59] LABS: Anion Gap 10.1 mEq/L (5-15); Blood Urea Nitrogen 14 mg/dl (9-20); Calcium 9.1 mg/dl (8.4-10.2); Carbon Dioxide 31 mmol/L (22.0-30.0); Chloride 94 mmol/L (98-107); Creatinine Clearance Estimated 84 mL/min (50-200); Estimated Glomerular Filt Rate 111 ml/min (>60); GFR (African American) 135 ML/MIN (>60); Glucose 250 mg/dl (74-100); Potassium 4.1 mmoL/L (3.5-5.1); Sodium 131 mmol/L (136-145)
--- NOTE | 2021-10-09 08:33 | HMH.ACPN2 ---
Internal Medicine - PN: Subj *Date: 10/09/21 *Time: 08:33 Interval history: Patient states he is feeling a bit better this morning. He denies any pain and states he slept well last night and ate breakfast this morning. Exam Vital signs and Labs for Last 24 Hours: Temp Pulse Resp BP Pulse Ox 98.2 F 84 14 115/76 95 10/09/21 07:42 10/09/21 07:42 10/09/21 03:59 10/09/21 07:42 10/09/21 03:59 Laboratory Results - last 24 hr 10/08/21 08:00: C-Reactive Protein 214.3 H 10/08/21 08:12: WBC 13.0 H, RBC 4.71, Hgb 11.6 L D, Hct 35.6 L, MCV 75.6 L, MCH 24.7 L, MCHC 32.7, RDW 15.2, Plt Count 433 H, MPV 6.9 L, Neut % (Auto) 79.5, Lymph % (Auto) 13.4, Mcculloch % (Auto) 5.5, Eos % (Auto) 1.1, Baso % (Auto) 0.5, Neut # (Auto) 10.3 H, Lymph # (Auto) 1.7, Mcculloch # (Auto) 0.7, Eos # (Auto) 0.2, Baso # (Auto) 0.1 10/08/21 08:12: ESR 61 H 10/08/21 08:12: Sodium 129 L, Potassium 4.1, Chloride 94 L, Carbon Dioxide 29, Anion Gap 10.1, BUN 9, Creatinine 0.60 L, Estimated Creat Clear 85, Estimated GFR 133, Est GFR ( Amer) 161, Glucose 313 H D, Calcium 8.9, Total Bilirubin 0.5, AST 17 D, ALT 14 D, Alkaline Phosphatase 148 H, Total Protein 6.5, Albumin 3.0 L D, Globulin 3.5 H, Albumin/Globulin Ratio 0.9 L 10/08/21 11:36: POC Glucose 355 H* 10/08/21 17:07: POC Glucose 191 H 10/08/21 21:04: POC Glucose 329 H* 10/09/21 06:38: POC Glucose 264 H 10/09/21 07:35: WBC 14.4 H, RBC 4.65, Hgb 11.2 L, Hct 35.5 L, MCV 76.4 L, MCH 24.1 L, MCHC 31.5 L, RDW 15.2, Plt Count 485 H, MPV 6.7 L, Neut % (Auto) 79.4, Lymph % (Auto) 14.2, Mcculloch % (Auto) 5.4, Eos % (Auto) 0.7, Baso % (Auto) 0.4, Neut # (Auto) 11.4 H, Lymph # (Auto) 2.0, Mcculloch # (Auto) 0.8, Eos # (Auto) 0.1, Baso # (Auto) 0.1 10/09/21 07:35: Sodium 131 L, Potassium 4.1, Chloride 94 L, Carbon Dioxide 31 H, Anion Gap 10.1, BUN 14 D, Creatinine 0.70, Estimated Creat Clear 84, Estimated GFR 111, Est GFR ( Amer) 135, Glucose 250 H D, Calcium 9.1 I & O for Last 24 hours: Intake & Output 10/06/21 10/07/21 10/08/21 10/09/21 11:59 11:59 11:59 11:59 Intake Total 610 / 610 1239 / 1239 Output Total 1600 / 1600 150 / 150 Balance -990 / -990 1089 / 1089 Weight 180 lb 192 lb 9.6 oz 190 lb 14.4 oz Microbiology Reports for the Last 24 Hours: Microbiology 10/08/21 16:15 Thigh - Left Gram Stain - Final 10/08/21 16:15 Thigh - Left Abscess Culture - Preliminary 10/07/21 11:40 Leg,Left - Abscess Gram Stain - Final 10/07/21 11:40 Leg,Left - Abscess Wound Culture - Preliminary - Constitutional no acute distress - *Routine Respiratory Exam Present: CTA bilaterally - *Routine Cardiovascular Exam Present: RRR - *Routine Abdominal Exam Present: soft, normoactive bowel sounds. Absent: tenderness - *Routine Extremities Exam Absent: cyanosis, clubbing, edema Comments: Left BKA with dressing in place - *Routine Skin Exam Present: warm. Absent: rash - *Routine Neurological Exam Present: alert, oriented X3 Assessment and Plan (1) Cellulitis and abscess of leg Status: Acute Category: Medical Code(s): L03.119 - Cellulitis of unspecified part of limb; L02.419 - Cutaneous abscess of limb, unspecified (2) Type 2 diabetes mellitus Status: Acute Category: Medical Code(s): E11.9 - Type 2 diabetes mellitus without complications (3) Peripheral vascular disease in diabetes mellitus Status: Acute Category: Medical Code(s): E11.51 - Type 2 diabetes mellitus with diabetic peripheral angiopathy without gangrene (4) Hx of CABG Status: Acute Category: Surgical Code(s): Z95.1 - Presence of aortocoronary bypass graft (5) History of left below knee amputation Status: Chronic Category: Medical Code(s): Z89.512 - Acquired absence of left leg below knee - Assessment and plan all Dx Assessment and Plan for all problems:: Patient had I&D of left leg abscess yesterday by Dr. Arenas. Awaiting culture results. Ortho to follow.
[2021-10-09 12:29] LABS: POC Glucose,Bedside 291 (70-110)
--- NOTE | 2021-10-09 13:12 | HMH.ORTHPN ---
Subjective Date: 10/09/21 Time: 12:30 Principal diagnosis: left thigh abscess Interval history: Mr. Vergara is a 71-year-old male admitted to the acute inpatient service who underwent an uneventful incision and drainage/debridement of his left thigh abscess yesterday 10/08/[address] Arenas. Today the patient is postop day #1. This afternoon the patient is lying comfortably in bed. He reports some pain in his left thigh but states that it is well controlled with as needed pain medication and rest. He is eating and drinking well and denies any episodes of nausea or vomiting. No history of fevers, chills, or rigors. He denies any other symptoms or concerns at this time. PN: Obj Ex Vital signs: Temp Pulse Resp BP Pulse Ox 97.8 F 87 16 119/50 L 99 10/09/21 08:00 10/09/21 08:00 10/09/21 08:00 10/09/21 08:00 10/09/21 08:00 - Constitutional no acute distress, cooperative - Routine HEENT Exam Head: Present: normocephalic, atraumatic Eye: Present: EOMI, PERRL ENT: Present: mucous membranes moist - Routine Neck Exam Present: supple, full ROM, trachea midline. Absent: JVD, lymphadenopathy - Routine Respiratory Exam Absent: accessory muscle use, respiratory distress Comments: Symmetric chest movement, able to speak in complete sentences - Routine Cardiovascular Exam Present: RRR Comments: Normal peripheral pulses - Routine Abdominal Exam Present: soft. Absent: tenderness - Routine Extremities Exam Comments: Upon examination of the left residual limb: Dressings present are clean, dry, and intact. No evidence of drainage or bleeding noted. Thigh is soft and nontender. Patient is able to actively flex and extend the knee joint. The distal flap appears pink, warm, and well-perfused. - Routine Skin Exam Present: intact, warm, normal turgor. Absent: cyanosis, erythema, lesions, jaundice - Routine Neurological Exam Present: alert, oriented X3, CN II-XII intact, moving all extremities, normal tone, normal speech. Absent: sensory deficit, motor deficit, altered mental status - Routine Psychiatric Exam Present: normal affect, cooperative Progress Note: A&P (1) Cellulitis and abscess of leg Status: Acute (2) Type 2 diabetes mellitus Status: Acute (3) Peripheral vascular disease in diabetes mellitus Status: Acute (4) Hx of CABG Status: Acute (5) History of left below knee amputation Status: Chronic Assessment and Plan for All Diagnoses:: Rounded with Dr. Arenas; we have reviewed the clinical findings and progress with the patient. Overall he is doing well this afternoon from an orthopedic standpoint. Recommend continuation of IV antibiotics and await culture results for any changes to the antibiotic regimen as needed. Continue elevation, ice, and as needed pain medication. All questions were answered and the patient verbalized good understanding. Continue medical management as per Dr. Chou.
--- NOTE | 2021-10-09 15:23 | PC.NURSE ---
patient has done well this shift. some concerns in regards to transferring to bathroom. per md patient dressing will be changed tomorrow by him and then it will need to be changed every few days after that. dressing remains clean dry and intact. no complaints of pain. rings out as needed.
--- NOTE | 2021-10-09 16:23 | PC.NURSE ---
Received report from Apolinar Silver RN. Rounded on pt, no needs at this time. FSBS was 167, pt received 5 units of Humalog per SSI.
[2021-10-09 22:05] LABS: POC Glucose,Bedside 140 (70-110)
[2021-10-10] VITALS: BP 130/52; PULSE 74; RESP 16; TEMP 36.6; O2SAT 97
[2021-10-10 03:39] LABS: POC Glucose,Bedside 254 (70-110)
[2021-10-10 03:39] LABS: POC Glucose,Bedside 167 (70-110)
[2021-10-10 04:00] VITALS: BP 128/57; PULSE 82; RESP 16; TEMP 36.6; O2SAT 95
--- NOTE | 2021-10-10 04:20 | PC.NURSE ---
Pt is alert and oriented x4, pt has used the urinal independently this shift. Pt has had no complaints of pain this shift. Pt is tolerating room air with O2 sats >90%. Dressing and wrap on left thigh is CDI. Redness and swelling noted to scrotum, pt reports discomfort to the area, ice pack applied, pt reports no more discomfort.
[2021-10-10 05:18] VITALS: BMI 29.2
[2021-10-10 08:00] VITALS: BP 118/58; PULSE 85; RESP 16; TEMP 37.1; O2SAT 95
--- NOTE | 2021-10-10 08:41 | HMH.ACPN2 ---
Internal Medicine - PN: Subj *Date: 10/10/21 *Time: 08:41 Interval history: Patient denies any pain this morning. He states he slept well and ate well. He has having a significant amount of drainage through the Lewis bandage. He states his bandage was not changed yesterday. Exam Vital signs and Labs for Last 24 Hours: Temp Pulse Resp BP Pulse Ox 98.8 F 85 16 118/58 L 95 10/10/21 08:00 10/10/21 08:00 10/10/21 08:00 10/10/21 08:00 10/10/21 08:00 Laboratory Results - last 24 hr 10/08/21 17:36: POC Glucose 291 H 10/09/21 12:04: POC Glucose 254 H 10/09/21 16:19: POC Glucose 167 H 10/09/21 20:19: POC Glucose 140 H I & O for Last 24 hours: Intake & Output 10/07/21 10/08/21 10/09/21 10/10/21 11:59 11:59 11:59 11:59 Intake Total 610 / 610 1479 / 1479 2307 / 2307 Output Total 1600 / 1600 570 / 570 2380 / 2380 Balance -990 / -990 909 / 909 -73 / -73 Weight 180 lb 192 lb 9.6 oz 190 lb 14.4 oz 192 lb 11.2 oz Microbiology Reports for the Last 24 Hours: Microbiology 10/07/21 11:40 Leg,Left - Abscess Gram Stain - Final 10/07/21 11:40 Leg,Left - Abscess Wound Culture - Preliminary Gram Positive Cocci 10/08/21 16:15 Thigh - Left Gram Stain - Final 10/08/21 16:15 Thigh - Left Abscess Culture - Preliminary Gram Positive Cocci 10/07/21 11:20 Blood Blood Culture - Preliminary NO GROWTH AFTER 48 HOURS 10/07/21 11:20 Blood Blood Culture - Preliminary NO GROWTH AFTER 48 HOURS - Constitutional no acute distress - *Routine Respiratory Exam Present: CTA bilaterally - *Routine Cardiovascular Exam Present: RRR - *Routine Abdominal Exam Present: soft, normoactive bowel sounds. Absent: tenderness - *Routine Extremities Exam Absent: edema - *Routine Skin Exam Present: warm. Absent: rash Comments: Left BKA, Lewis bandage with significant amount of drainage on the posterior aspect - *Routine Neurological Exam Present: alert, oriented X3 Assessment and Plan (1) Cellulitis and abscess of leg Status: Acute Category: Medical Code(s): L03.119 - Cellulitis of unspecified part of limb; L02.419 - Cutaneous abscess of limb, unspecified (2) Type 2 diabetes mellitus Status: Acute Category: Medical Code(s): E11.9 - Type 2 diabetes mellitus without complications (3) Peripheral vascular disease in diabetes mellitus Status: Acute Category: Medical Code(s): E11.51 - Type 2 diabetes mellitus with diabetic peripheral angiopathy without gangrene (4) Hx of CABG Status: Acute Category: Surgical Code(s): Z95.1 - Presence of aortocoronary bypass graft (5) History of left below knee amputation Status: Chronic Category: Medical Code(s): Z89.512 - Acquired absence of left leg below knee - Assessment and plan all Dx Assessment and Plan for all problems:: Final wound culture still pending. Ortho to follow.
[2021-10-10 09:50] VITALS: BMI 29.0
[2021-10-10 11:45] LABS: Anion Gap 9.4 mEq/L (5-15); Blood Urea Nitrogen 12 mg/dl (9-20); Calcium 8.9 mg/dl (8.4-10.2); Carbon Dioxide 26 mmol/L (22.0-30.0); Chloride 98 mmol/L (98-107); Creatinine Clearance Estimated 85 mL/min (50-200); Estimated Glomerular Filt Rate 111 ml/min (>60); GFR (African American) 135 ML/MIN (>60); Glucose 176 mg/dl (74-100); Potassium 4.4 mmoL/L (3.5-5.1); Sodium 129 mmol/L (136-145)
[2021-10-10 12:00] VITALS: BP 119/62; PULSE 77; RESP 16; TEMP 36.6; O2SAT 99
[2021-10-10 12:35] LABS: POC Glucose,Bedside 164 (70-110)
--- NOTE | 2021-10-10 12:44 | PC.NURSE ---
Addendum entered by Nolvia rBuce RN 10/10/21 17:18: PT IS SITTING UP IN THE CHAIR EATING DINNER AT THIS TIME. BATH AND LINEN CHANGE THIS SHIFT. Original Note: PT IS SITTING UP IN THE BED EATING AT THIS TIME. NO COMPLAINTS OF DISCOMFORT. ALERT AND ORIENTED X4. EATING AND DRINKING WELL. DRESSING WAS CHANGED PER THIS SHIFT. PT HAD REDNESS NOTED TO THE SCROTAL/KIKI AREA AREA. NYSTATIN APPLIED. LUNG SOUNDS CLEAR. ABDOMEN SOFT/NON TENDER WITH ACTIVE BOWEL SOUNDS. WILL CONTINUE TO MONITOR.
--- NOTE | 2021-10-10 14:00 | HMH.ORTHPN ---
Subjective Date: 10/10/21 Time: 12:30 Principal diagnosis: left thigh abscess Interval history: Mr. Vergara is a 71-year-old male admitted to the acute inpatient service who underwent an uneventful incision and drainage/debridement of his left thigh abscess on 10/08/[address] Arenas. Today the patient is postop day #2. This afternoon the patient is lying comfortably in bed. He reports some pain in his left thigh but states that it is well controlled with as needed pain medication and rest. He is eating and drinking well and denies any episodes of nausea or vomiting. No history of fevers, chills, or rigors. He denies any other symptoms or concerns at this time. PN: Obj Ex Vital signs: Temp Pulse Resp BP Pulse Ox 97.9 F 77 16 119/62 99 10/10/21 12:00 10/10/21 12:00 10/10/21 12:00 10/10/21 12:00 10/10/21 12:00 - Constitutional no acute distress, cooperative - Routine HEENT Exam Head: Present: normocephalic, atraumatic Eye: Present: EOMI, PERRL ENT: Present: mucous membranes moist - Routine Neck Exam Present: supple, full ROM, trachea midline. Absent: JVD, lymphadenopathy - Routine Respiratory Exam Absent: accessory muscle use, respiratory distress Comments: Symmetric chest movement, able to speak in complete sentences - Routine Cardiovascular Exam Present: RRR Comments: Normal peripheral pulses - Routine Abdominal Exam Present: soft. Absent: tenderness - Routine Extremities Exam Comments: Upon examination of the left residual limb: Dressings present are clean, dry, and intact. Out of the dressings, the surgical incision is healing well. Thigh is soft and nontender. Patient is able to actively flex and extend the knee joint. The distal flap appears pink, warm, and well-perfused. - Routine Skin Exam Present: intact, warm, normal turgor. Absent: cyanosis, erythema, lesions, jaundice - Routine Neurological Exam Present: alert, oriented X3, CN II-XII intact, moving all extremities, normal tone, normal speech. Absent: sensory deficit, motor deficit, altered mental status - Routine Psychiatric Exam Present: normal affect, cooperative Progress Note: A&P (1) Cellulitis and abscess of leg Status: Acute (2) Type 2 diabetes mellitus Status: Acute (3) Peripheral vascular disease in diabetes mellitus Status: Acute (4) Hx of CABG Status: Acute (5) History of left below knee amputation Status: Chronic Assessment and Plan for All Diagnoses:: Rounded with Dr. Arenas; we have reviewed the clinical findings and progress with the patient. Overall he is doing well this afternoon from an orthopedic standpoint. We have changed her surgical dressing and the surgical incision is healthy and healing well. We have removed the surgical packing gauze and redressed the wound with nonadherent dressings. Recommend continuation of IV antibiotics and await culture results for any changes to the antibiotic regimen as needed. Continue elevation, ice, and as needed pain medication. All questions were answered and the patient verbalized good understanding. Continue medical management as per Dr. Chou.
[2021-10-10 15:47] LABS: Vancomycin,Peak 47.3 ug/ml (11-39)
[2021-10-10 16:00] VITALS: BP 130/70; PULSE 80; RESP 16; TEMP 36.7; O2SAT 100
--- NOTE | 2021-10-10 16:11 | HMH.PHACONS ---
- Pharmacy Consult Date: 10/10/21 Time: 16:11 Referring provider: DR. GARCIA Reason for Consult:: VANCOMYCIN DOSING Allergies and ADEs:: Allergies Allergy/AdvReac Type Severity Reaction Status Date / Time No Known Allergies Allergy Verified 10/07/21 11:33 Home Medications:: Home Medications Medication Instructions Recorded Confirmed Type Aspirin [Aspirin 81mg EC Tab] 81 mg PO DAILY 10/07/21 10/07/21 History Atorvastatin Calcium [Lipitor 40mg 40 mg PO HS 10/07/21 10/07/21 History Tablet*] Ferrous Sulfate [Ferosul] 325 mg PO DAILY 10/07/21 10/07/21 History Gabapentin [Neurontin 300mg 300 mg PO DAILY 10/07/21 10/07/21 History capsule] Insulin Detemir [Levemir 18 unit SQ DAILY 10/07/21 10/07/21 History 100units/mL 3mL flexpen] Metformin HCl 1,000 mg PO BID 10/07/21 10/07/21 History Metoprolol Tartrate [Lopressor 50 mg PO BID 10/07/21 10/07/21 History 50mg tablet] Pantoprazole Sodium [Protonix 40mg 40 mg PO HS 10/07/21 10/07/21 History tablet] Ropinirole HCl [Requip 1mg tablet] 1 mg PO HS 10/07/21 10/07/21 History Sertraline HCl [Zoloft] 25 mg PO DAILY 10/07/21 10/07/21 History Height: 1.73 m Weight: 87 kg Laboratory Results:: Laboratory Results - last 24 hr 10/09/21 12:04: POC Glucose 254 H 10/09/21 16:19: POC Glucose 167 H 10/09/21 20:19: POC Glucose 140 H 10/10/21 11:03: Vancomycin Trough 16.0 H 10/10/21 11:03: Sodium 129 L, Potassium 4.4, Chloride 98, Carbon Dioxide 26, Anion Gap 9.4, BUN 12, Creatinine 0.70, Estimated Creat Clear 85, Estimated GFR 111, Est GFR ( Amer) 135, Glucose 176 H, Calcium 8.9 10/10/21 11:43: POC Glucose 164 H 10/10/21 15:10: Vancomycin Peak 47.3 H* Medical History: Reports:: Diabetes Mellitus Type 2 (7 or 8 years), Peripheral Vascular Disease Denies:: Aneurysm Assessment and Plan (1) Cellulitis and abscess of leg Status: Acute Category: Medical Code(s): L03.119 - Cellulitis of unspecified part of limb; L02.419 - Cutaneous abscess of limb, unspecified (2) Type 2 diabetes mellitus Status: Acute Category: Medical Code(s): E11.9 - Type 2 diabetes mellitus without complications (3) Peripheral vascular disease in diabetes mellitus Status: Acute Category: Medical Code(s): E11.51 - Type 2 diabetes mellitus with diabetic peripheral angiopathy without gangrene (4) Hx of CABG Status: Acute Category: Surgical Code(s): Z95.1 - Presence of aortocoronary bypass graft (5) History of left below knee amputation Status: Chronic Category: Medical Code(s): Z89.512 - Acquired absence of left leg below knee - Assessment and plan all Dx Assessment and Plan for all problems:: PATEINT'S VANCOMYCIN TROUGH AND PEAK LEVELS WERE 16.0 MCG/ML AND 47.3 MCG/ML, RESPECTIVELY. PEAK LEVEL WAS DRAWN SHORTLY AFTER DOSE WAS FINISHED. RECOMMEND AT THIS TIME TO CONTINUE WITH VANCOMYCIN 1750 MG Q18H AT THIS TIME.
[2021-10-10 17:57] LABS: POC Glucose,Bedside 163 (70-110)
[2021-10-10 19:34] VITALS: BP 110/58; PULSE 81; RESP 20; TEMP 36.7; O2SAT 99
[2021-10-10 21:52] LABS: POC Glucose,Bedside 155 (70-110)
[2021-10-11 00:32] LABS: POC Glucose,Bedside 135 (70-110)
--- NOTE | 2021-10-11 03:39 | PC.NURSE ---
Addendum entered by Kalpana Mckeon RN 10/11/21 04:44: Patient A&O x4. Dressing in place on lt stump is CDI. Patient has not complained of an pain. Nystatin applied to scrotum area-redness and swelling noted. Patient received IV ABX per may. Patient tolerating room air sats above 90%. Original Note: [facility]anc labs. Okayed next dose.
[2021-10-11 04:00] VITALS: BP 114/46; PULSE 82; RESP 18; TEMP 36.7; O2SAT 96
[2021-10-11 04:33] VITALS: BMI 29.2
[2021-10-11 05:47] LABS: POC Glucose,Bedside 183 (70-110)
[2021-10-11 06:31] LABS: Basophils # 0.1 K/mm3 (0-0.2); Basophils % 0.6 % (0.1-2.0); Eosinophils # 0.3 K/mm3 (0.0-0.4); Eosinophils % 2.1 % (0.1-12.0); Hematocrit 32.1 % (42.0-52.0); Hemoglobin 10.2 g/dL (14.1-18.0); Mean Corpuscular HGB Conc 31.8 g/dL (31.8-35.4); Mean Corpuscular Hemoglobin 24.4 pg (27.0-31.2); Mean Corpuscular Volume 76.7 fl (80-94); Mean Platelet Volume 6.9 fl (7.4-10.4); Monocytes # 0.6 K/mm3 (0.1-1.0); Monocytes % 5.1 % (1.7-9.3); Neutrophils % 75.2 % (37.0-80.0); Platelet Count 445 K/mm3 (142-424); Red Blood Count 4.18 M/mm3 (4.60-6.20); Red Cell Distribution Width 15.2 % (11.5-17.5)
[2021-10-11 07:04] LABS: Anion Gap 9.1 mEq/L (5-15); Blood Urea Nitrogen 13 mg/dl (9-20); Calcium 8.8 mg/dl (8.4-10.2); Carbon Dioxide 27 mmol/L (22.0-30.0); Chloride 100 mmol/L (98-107); Creatinine Clearance Estimated 85 mL/min (50-200); Estimated Glomerular Filt Rate 111 ml/min (>60); GFR (African American) 135 ML/MIN (>60); Glucose 159 mg/dl (74-100); Potassium 4.1 mmoL/L (3.5-5.1); Sodium 132 mmol/L (136-145)
[2021-10-11 08:00] VITALS: BP 123/48; PULSE 72; RESP 16; TEMP 36.6; O2SAT 97
--- NOTE | 2021-10-11 08:44 | HMH.ACPN2 ---
Internal Medicine - PN: Subj *Date: 10/11/21 *Time: 08:44 Exam Vital signs and Labs for Last 24 Hours: Temp Pulse Resp BP Pulse Ox 98.1 F 82 18 114/46 L 96 10/11/21 04:00 10/11/21 04:00 10/11/21 04:00 10/11/21 04:00 10/11/21 04:00 Laboratory Results - last 24 hr 10/10/21 06:14: POC Glucose 135 H 10/10/21 11:03: Vancomycin Trough 16.0 H 10/10/21 11:03: Sodium 129 L, Potassium 4.4, Chloride 98, Carbon Dioxide 26, Anion Gap 9.4, BUN 12, Creatinine 0.70, Estimated Creat Clear 85, Estimated GFR 111, Est GFR ( Amer) 135, Glucose 176 H, Calcium 8.9 10/10/21 11:43: POC Glucose 164 H 10/10/21 15:10: Vancomycin Peak 47.3 H* 10/10/21 16:24: POC Glucose 163 H 10/10/21 20:22: POC Glucose 155 H 10/11/21 05:26: POC Glucose 183 H 10/11/21 06:00: WBC 12.0 H, RBC 4.18 L, Hgb 10.2 L, Hct 32.1 L, MCV 76.7 L, MCH 24.4 L, MCHC 31.8, RDW 15.2, Plt Count 445 H, MPV 6.9 L, Neut % (Auto) 75.2, Lymph % (Auto) 17.0, [place] % (Auto) 5.1, Eos % (Auto) 2.1, Baso % (Auto) 0.6, Neut # (Auto) 9.0 H, Lymph # (Auto) 2.0, [place] # (Auto) 0.6, Eos # (Auto) 0.3, Baso # (Auto) 0.1 10/11/21 06:00: Sodium 132 L, Potassium 4.1, Chloride 100, Carbon Dioxide 27, Anion Gap 9.1, BUN 13, Creatinine 0.70, Estimated Creat Clear 85, Estimated GFR 111, Est GFR ( Amer) 135, Glucose 159 H, Calcium 8.8 I & O for Last 24 hours: Intake & Output 10/08/21 10/09/21 10/10/21 07/22/22 23:59 23:59 23:59 23:59 Intake Total 1010 / 1010 2396 / 2396 2729 / 2729 1050 / 1050 Output Total 1100 / 1100 1950 / 1950 3175 / 3175 1175 / 1175 Balance -90 / -90 446 / 446 -446 / -446 -125 / -125 Weight 87.362 kg 86.591 kg 87 kg 87.679 kg Microbiology Reports for the Last 24 Hours: Microbiology 10/07/21 11:40 Leg,Left - Abscess Gram Stain - Final 10/07/21 11:40 Leg,Left - Abscess Wound Culture - Final Strep agalactiae - (group b) 10/08/21 16:15 Thigh - Left Gram Stain - Final 10/08/21 16:15 Thigh - Left Abscess Culture - Preliminary Gram Positive Cocci Assessment and Plan (1) Cellulitis and abscess of leg Status: Acute Category: Medical Code(s): L03.119 - Cellulitis of unspecified part of limb; L02.419 - Cutaneous abscess of limb, unspecified (2) Type 2 diabetes mellitus Status: Acute Category: Medical Code(s): E11.9 - Type 2 diabetes mellitus without complications (3) Peripheral vascular disease in diabetes mellitus Status: Acute Category: Medical Code(s): E11.51 - Type 2 diabetes mellitus with diabetic peripheral angiopathy without gangrene (4) Hx of CABG Status: Acute Category: Surgical Code(s): Z95.1 - Presence of aortocoronary bypass graft (5) History of left below knee amputation Status: Chronic Category: Medical Code(s): Z89.512 - Acquired absence of left leg below knee The patient's infection will respond to the chosen ABx?: Yes (GROUP B STREP, CEFEPIME/VANCO COVERS, AWAITING THIGH CULTURE) Is the patient receiving the right drug, dose, and route?: Yes Could a more targeted ABx be ordered?: No
--- NOTE | 2021-10-11 08:51 | HMH.ACPN2 ---
Internal Medicine - PN: Subj *Date: 10/11/21 *Time: 08:51 Interval history: Patient states he is feeling well this morning. He did not sleep last night but he did eat breakfast this morning. His pain is controlled and he was seen by Ortho yesterday and had dressing changes. His Lewis and dressing are clean and dry this morning. Exam Vital signs and Labs for Last 24 Hours: Temp Pulse Resp BP Pulse Ox 97.9 F 72 16 123/48 L 97 10/11/21 08:00 10/11/21 08:00 10/11/21 08:00 10/11/21 08:00 10/11/21 08:00 Laboratory Results - last 24 hr 10/10/21 06:14: POC Glucose 135 H 10/10/21 11:03: Vancomycin Trough 16.0 H 10/10/21 11:03: Sodium 129 L, Potassium 4.4, Chloride 98, Carbon Dioxide 26, Anion Gap 9.4, BUN 12, Creatinine 0.70, Estimated Creat Clear 85, Estimated GFR 111, Est GFR ( Amer) 135, Glucose 176 H, Calcium 8.9 10/10/21 11:43: POC Glucose 164 H 10/10/21 15:10: Vancomycin Peak 47.3 H* 10/10/21 16:24: POC Glucose 163 H 10/10/21 20:22: POC Glucose 155 H 10/11/21 05:26: POC Glucose 183 H 10/11/21 06:00: WBC 12.0 H, RBC 4.18 L, Hgb 10.2 L, Hct 32.1 L, MCV 76.7 L, MCH 24.4 L, MCHC 31.8, RDW 15.2, Plt Count 445 H, MPV 6.9 L, Neut % (Auto) 75.2, Lymph % (Auto) 17.0, [place] % (Auto) 5.1, Eos % (Auto) 2.1, Baso % (Auto) 0.6, Neut # (Auto) 9.0 H, Lymph # (Auto) 2.0, [place] # (Auto) 0.6, Eos # (Auto) 0.3, Baso # (Auto) 0.1 10/11/21 06:00: Sodium 132 L, Potassium 4.1, Chloride 100, Carbon Dioxide 27, Anion Gap 9.1, BUN 13, Creatinine 0.70, Estimated Creat Clear 85, Estimated GFR 111, Est GFR ( Amer) 135, Glucose 159 H, Calcium 8.8 I & O for Last 24 hours: Intake & Output 10/08/21 10/09/21 10/10/21 10/11/21 11:59 11:59 11:59 11:59 Intake Total 610 / 610 1479 / 1479 2667 / 2667 2669 / 2669 Output Total 1600 / 1600 570 / 570 3180 / 3180 2550 / 2550 Balance -990 / -990 909 / 909 -513 / -513 119 / 119 Weight 192 lb 9.6 oz 190 lb 14.4 oz 191 lb 12.835 oz 193 lb 4.8 oz Microbiology Reports for the Last 24 Hours: Microbiology 10/07/21 11:40 Leg,Left - Abscess Gram Stain - Final 10/07/21 11:40 Leg,Left - Abscess Wound Culture - Final Strep agalactiae - (group b) 10/08/21 16:15 Thigh - Left Gram Stain - Final 10/08/21 16:15 Thigh - Left Abscess Culture - Preliminary Gram Positive Cocci - Constitutional no acute distress - *Routine Respiratory Exam Present: CTA bilaterally - *Routine Cardiovascular Exam Present: RRR - *Routine Abdominal Exam Present: soft, normoactive bowel sounds. Absent: tenderness - *Routine Extremities Exam Absent: cyanosis, clubbing, edema Comments: Left BKA with Lewis bandage in place, no drainage on the dressing - *Routine Skin Exam Present: warm. Absent: rash - *Routine Neurological Exam Present: alert, oriented X3 Assessment and Plan (1) Cellulitis and abscess of leg Status: Acute Category: Medical Code(s): L03.119 - Cellulitis of unspecified part of limb; L02.419 - Cutaneous abscess of limb, unspecified (2) Type 2 diabetes mellitus Status: Acute Category: Medical Code(s): E11.9 - Type 2 diabetes mellitus without complications (3) Peripheral vascular disease in diabetes mellitus Status: Acute Category: Medical Code(s): E11.51 - Type 2 diabetes mellitus with diabetic peripheral angiopathy without gangrene (4) Hx of CABG Status: Acute Category: Surgical Code(s): Z95.1 - Presence of aortocoronary bypass graft (5) History of left below knee amputation Status: Chronic Category: Medical Code(s): Z89.512 - Acquired absence of left leg below knee - Assessment and plan all Dx Assessment and Plan for all problems:: Patient is ready for discharge but care management is working on placement.
--- NOTE | 2021-10-11 09:28 | DIET.NUTRFU ---
RD reviewed diabetic handout with patient, encouraged him to have 3 meals/day at home and 3-4 carb choices each meal. Reviewed what foods are carb choices and the portion sizes. He plans to discharge home with son when ready and he will review handout with son to help with food selection at grocery store. Appetite has been fair to good during stay, no other discharge needs at this time.
--- NOTE | 2021-10-11 10:58 | SW/DCPLANNER ---
Patient information has been faxed to Pauly with [facility]. Pauly reviewed patient information and stated that she can accept this patient for tomorrow 10/12/21. Patient will require a COVID swab prior to discharge. I will inform patient, his family and Dr Chou.
--- NOTE | 2021-10-11 11:19 | HMH.PTEV ---
Physical Therapy Evaluation Rehab PT IP Evaluation Start: 10/11/21 09:59 Freq: ONCE Status: Active Protocol: Document 10/11/21 11:13 PHORNE (Rec: 10/11/21 11:18 PHORNE [id number]) Subjective/History History History 71 yowm adm to [facility] with L post thigh wound now S/P I&D with delayed closure. Pt has hx of prior L BKA ~ 1 yr ago. He reports he was living with his son prior to adm, 3 steps to enter the home, using quad cane and his prosthesis for ambulation. With current wound , he is unable to use his prosthesis until fully healed. Subjective Subjective He reports no pain at this time, and agrees to get OOB. Rehab PT IP Eval Objective Appearance Patient Behavior Appropriate Patient Orientation Person,Place,Time Difficulty following instructions none Speech Pattern Clear Ambulation Patient Able to Ambulate Yes Ambulation Observation IP General Gait Pattern Observation Decrease Weight Bear (L) Ambulation Distance (feet) 3 Ambulation Assistive Device Rolling Walker Ambulation Ability Minimal x 1 (25% assist) Balance Ability to Arise Able, uses arms to help Sitting Balance Steady, safe Standing Balance Unsteady Dynamic Sitting Balance Ability Good Dynamic Standing Balance Ability Fair Transfers Bed Transfer Ability Supervision/Stand by Chair Transfer Ability Minimal x 1 (25% assist) Sit to Stand Bed Transfer Ability Minimal x 1 (25% assist) Sit to Stand Chair Transfer Ability Minimal x 1 (25% assist) Rehab PT IP prob,goals,plan Problems Date of Evaluation: 10/11/21 PT IP Problems Bed Mobility,Transfers,Gait Rehab Potential Rehab Potential Good Equipment Needs Assistive Devices Rolling / Wheeled Walker Plan PT Intervention Plan Bed Mobility,Transfers,Gait, Balance,Self care,Therapeutic Exercise PT Plan Frequency BID Duration LOS Discharge Goals Bed Transfer Ability Independent Sit to Stand Chair Transfer Ability Contact Guard/Hand Hold Ambulation Assistive Device Rolling Walker Ambulation Distance (feet) 5 Discharge Plan PT Discharge Plan Pt required assistance to manage walker during transfers and ambulation this date and
[2021-10-11 11:37] LABS: Coronavirus 19, PCR Not Detected (NotDetected); Influenza A, PCR Not Detected (NotDetected); Influenza B, PCR Not Detected (NotDetected)
--- NOTE | 2021-10-11 11:41 | HMH.OTEV ---
OT Inpatient Evaluation Rehab OT IP Evaluation Start: 10/11/21 09:59 Freq: ONCE Status: Complete Protocol: Document 10/11/21 11:18 HEBERT (Rec: 10/11/21 11:41 [facility] [id number]) Rehab OT IP Assessment Subjective History Pt oriented x 3 on arrival. Pt agreeable to engage in therapy evaluation. Pt was admitted on 10/07/21 due to an infection in the left leg. Pt has a below the knee ampuation on left leg that was completed over 1 year ago. He was using a prosthesis and was independent with all ADLs and IADLs. He used a cane during ambulation and was still driving. Pt was living alone in his own home up until 3 months ago when he had to move in with his son for extra assistance due to the wound on his left leg. On 10/08/21 he required an incision and drainage/debridement abscess to left thigh. Subjective I would like to get up and move over. Pt resting in bed and agreeable to get to chair. Pt complete bed mobility with cga and went from supine to sitting at eob. Pt stood from eob with min assist. Pt transferred from bed to chair with rolling walker and min assist. Pt sat down in chair with min assist. Pt was left sitting in chair with call walker and all other needs in reach. Objective Patient Orientation Person,Place,Birthday Upper Extremity Gross ROM WFL Bed Mobility bed mobility-scooting,bed mobility - supine/sit,bed mobility - rolling Assist Level Contact Guard/Hand Hold Transfer Training Sit/Stand/Step Transfer Assist Level Minimal x 1 (25% assist) Chair Transfer Ability Minimal x 1 (25% assist) Chair Transfer Technique Sit to/from Ambulatory Chair Transfer Assistive Devices Rolling Walker Rehab OT IP prob,goals,pl
--- NOTE | 2021-10-11 12:48 | HMH.ORTHPN ---
Subjective Date: 10/11/21 Time: 11:30 Principal diagnosis: left thigh abscess Interval history: Mr. Vergara is a 71-year-old male admitted to the acute inpatient service who underwent an uneventful incision and drainage/debridement of his left thigh abscess on 10/08/[address] Arenas. Today the patient is postop day #3. This time the patient is sitting comfortably in a chair at the bedside. He reports minimal pain in his left thigh that he states is well controlled with as needed pain medication and rest. No history of any fevers, chills, or rigors. He denies any other symptoms or concerns at this time. PN: Obj Ex Vital signs: Temp Pulse Resp BP Pulse Ox 97.9 F 72 16 123/48 L 97 10/11/21 08:00 10/11/21 08:00 10/11/21 08:00 10/11/21 08:00 10/11/21 08:00 - Constitutional no acute distress, cooperative - Routine HEENT Exam Head: Present: normocephalic, atraumatic Eye: Present: EOMI, PERRL ENT: Present: mucous membranes moist - Routine Neck Exam Present: supple, full ROM, trachea midline. Absent: JVD, lymphadenopathy - Routine Respiratory Exam Absent: accessory muscle use, respiratory distress Comments: Symmetric chest movement, able to speak in complete sentences - Routine Cardiovascular Exam Present: RRR Comments: Normal peripheral pulses - Routine Abdominal Exam Present: soft. Absent: tenderness - Routine Extremities Exam Comments: Upon examination of the left residual limb: Dressings present are clean, dry, and intact. Thigh is soft and nontender. Patient is able to actively flex and extend the knee joint. The distal flap appears pink, warm, and well-perfused. - Routine Skin Exam Present: intact, warm, normal turgor. Absent: cyanosis, erythema, lesions, jaundice - Routine Neurological Exam Present: alert, oriented X3, CN II-XII intact, moving all extremities, normal tone, normal speech. Absent: sensory deficit, motor deficit, altered mental status - Routine Psychiatric Exam Present: normal affect, cooperative Progress Note: A&P (1) Cellulitis and abscess of leg Status: Acute (2) Type 2 diabetes mellitus Status: Acute (3) Peripheral vascular disease in diabetes mellitus Status: Acute (4) Hx of CABG Status: Acute (5) History of left below knee amputation Status: Chronic Assessment and Plan for All Diagnoses:: I have reviewed the clinical findings and progress with the patient. Overall he is doing well this morning from an orthopedic standpoint, he may be discharged when medically appropriate. Dressings present over the left residual limb are clean, dry, and intact; recommend regular dressing changes every 2-3 days as needed. Recommend continuation of antibiotics and await culture results for any changes to the antibiotic regimen as needed. Continue elevation, ice, and as needed pain medication. All questions were answered and the patient verbalized a good understanding. We will see the patient for his first follow-up in our office in 4-5 days; the patient has an appointment scheduled for 10/15/2021 at 13:45 PM. Continue medical management as per Dr. Chou.
[2021-10-11 16:00] VITALS: BP 107/57; PULSE 94; RESP 20; TEMP 36.9; O2SAT 99
--- NOTE | 2021-10-11 16:13 | PC.NURSE ---
Pt is A&Ox4. Sitting up in chair with visitors at bedside. Lewis wrap and dressing C/D/I to left BKA. Excoriation remains to holden-area, blanchable redness noted to buttocks. Slight redness and warmth remaining to LLE. IV site to LFA intact and patent. Denies pain.
[2021-10-11 19:46] VITALS: BP 138/69; PULSE 79; RESP 16; TEMP 36.6; O2SAT 98
[2021-10-11 22:56] LABS: Sodium 132 mmol/L (136-145)
[2021-10-11 23:00] LABS: Blood Urea Nitrogen 14 mg/dl (9-20); Calcium 9.1 mg/dl (8.4-10.2); Carbon Dioxide 27 mmol/L (22.0-30.0); Creatinine Clearance Estimated 85 mL/min (50-200); Estimated Glomerular Filt Rate 96 ml/min (>60); GFR (African American) 116 ML/MIN (>60); Glucose 80 mg/dl (74-100)
[2021-10-11 23:21] LABS: Chloride 101 mmol/L (98-107)
[2021-10-11 23:34] LABS: Vancomycin,Trough 18.7 ug/mL (5.0-10.0)
--- NOTE | 2021-10-11 23:47 | PC.NURSE ---
Addendum entered by Kalpana Mckeon RN 10/12/21 04:48: Patient A&O x4. Dressing in place on lt stump is CDI. Patient has not complained of an pain. Nystatin applied to scrotum area-redness and swelling noted. Patient received IV ABX per may. Patient tolerating room air sats above 90%. Patient has had a few episodes of incontinence thus far in shift. Original Note: [facility] about [facility] vanc labs. Okayed next dose.
[2021-10-12 01:12] LABS: POC Glucose,Bedside 167 (70-110)
[2021-10-12 04:00] VITALS: BP 133/78; PULSE 72; RESP 16; TEMP 36.7; O2SAT 96
[2021-10-12 04:39] VITALS: BMI 29.0
[2021-10-12 08:00] VITALS: BP 145/57; PULSE 75; RESP 15; TEMP 36.7; O2SAT 98
--- NOTE | 2021-10-12 09:27 | P.CONPHA_ITS ---
- Pharmacy Consult Date: 10/12/21 Time: 09:27 Referring provider: DR. GARCIA Reason for Consult:: VANCOMYCIN TROUGH LEVEL Allergies and ADEs:: Allergies Allergy/AdvReac Type Severity Reaction Status Date / Time No Known Allergies Allergy Verified 10/07/21 11:33 Home Medications:: Home Medications Medication Instructions Recorded Confirmed Type Aspirin [Aspirin 81mg EC Tab] 81 mg PO DAILY 10/07/21 10/07/21 History Atorvastatin Calcium [Lipitor 40mg 40 mg PO HS 10/07/21 10/07/21 History Tablet*] Ferrous Sulfate [Ferosul] 325 mg PO DAILY 10/07/21 10/07/21 History Gabapentin [Neurontin 300mg 300 mg PO DAILY 10/07/21 10/07/21 History capsule] Insulin Detemir [Levemir 18 unit SQ DAILY 10/07/21 10/07/21 History 100units/mL 3mL flexpen] Metformin HCl 1,000 mg PO BID 10/07/21 10/07/21 History Metoprolol Tartrate [Lopressor 50 mg PO BID 10/07/21 10/07/21 History 50mg tablet] Pantoprazole Sodium [Protonix 40mg 40 mg PO HS 10/07/21 10/07/21 History tablet] Ropinirole HCl [Requip 1mg tablet] 1 mg PO HS 10/07/21 10/07/21 History Sertraline HCl [Zoloft] 25 mg PO DAILY 10/07/21 10/07/21 History Height: 1.73 m Weight: 86.863 kg Laboratory Results:: Laboratory Results - last 24 hr 10/11/21 11:30: SARS-CoV-2 (PCR) Not detected, Influenza A Untype (PCR) Not d etected, Influenza Type B (PCR) Not detected 10/11/21 11:37: POC Glucose 167 H 10/11/21 22:38: Vancomycin Trough 18.7 H 10/11/21 22:38: Sodium 132 L, Potassium 4.0, Chloride 101, Carbon Dioxide 27, Anion Gap 8.0, BUN 14, Creatinine 0.80, Estimated Creat Clear 85, Estimated GFR 96, Est GFR ( Amer) 116, Glucose 80 D, Calcium 9.1 Medical History: Reports:: Diabetes Mellitus Type 2 (7 or 8 years), Peripheral Vascular Disease Denies:: Aneurysm Assessment and Plan (1) Cellulitis and abscess of leg Status: Acute Category: Medical Code(s): L03.119 - Cellulitis of unspecified part of limb; L02.419 - Cutaneous abscess of limb, unspecified (2) Type 2 diabetes mellitus Status: Acute Category: Medical Code(s): E11.9 - Type 2 diabetes mellitus without complications (3) Peripheral vascular disease in diabetes mellitus Status: Acute Category: Medical Code(s): E11.51 - Type 2 diabetes mellitus with diabetic peripheral angiopathy without gangrene (4) Hx of CABG Status: Acute Category: Surgical Code(s): Z95.1 - Presence of aortocoronary bypass graft (5) History of left below knee amputation Status: Chronic Category: Medical Code(s): Z89.512 - Acquired absence of left leg below knee - Assessment and plan all Dx Assessment and Plan for all problems:: BASED ON PATIENT FACTORS AND VANCOMYCIN TROUGH LEVEL OF 18.7, RECOMMEND CONTINUING CURRENT DOSE OF VANCOMYCIN AT 1,750MG EVERY 18 HOURS. PHARMACY WILL CONTINUE TO MONITOR AND WILL ADJUST DOSE APPROPRIATE. -ELLEN ANDERSON, ERICAD
--- NOTE | 2021-10-12 11:00 | XR_ITS ---
PROCEDURE INFORMATION: Exam: XR Chest Exam date and time: 10/12/2021 12:01 PM Age: 71 years old Clinical indication: Device placement; Picc; Additional info: Picc line placement TECHNIQUE: Imaging protocol: Radiologic exam of the chest. Views: 1 view. COMPARISON: No relevant prior studies available. FINDINGS: Tubes, catheters and devices: There is a PICC catheter in place from a left-sided approach with the distal tip in the atrial caval junction. Lungs: There is a 7 mm right suprahilar nodular density which could represent a granuloma. Pleural spaces: No pleural effusion. No pneumothorax. Heart/Mediastinum: No cardiomegaly. Bones/joints: There are sternal wires. There are degenerative changes of the thoracic spine and shoulders. IMPRESSION: 1. Satisfactory position left PICC catheter. 2. No evidence of active pulmonary disease. 3. A followup PA and lateral radiograph is recommended when the patient is clinically able.
--- NOTE | 2021-10-12 11:35 | HMH.DCSUM ---
General - General Admission date:: 10/07/21 Discharge date: 10/12/21 HPI HPI: This 71-year-old white male diabetic presents in the emergency room at [facility] with complaints of an infected left leg. 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 This surgery was approximately 1 year ago according to the patient. The surgery was performed at [facility] by Dr. Dickinson. The patient is an insulin-dependent diabetic. He states that he is a patient of Dr. Jorge in [place]. He has been living with his son in [facility]. On evaluation in the emergency room he was found to have an 8 cm circumscribed area of discoloration with central excoriation and drainage. Brownish-red drainage could be expressed by pushing around the wound. The wound was on the posterior aspect of the leg just proximal to the knee. This wound very likely could have resulted from pressure or rubbing from his prosthesis. He was subsequent admitted for orthopedic consultation for I&D of the apparent abscess. Hospital Course Hospital Course: He was admitted and medically cleared for surgery. He was empirically started on IV vancomycin pending results of cultures. Plain x-rays of the lower leg were unremarkable. His sed rate and CRP were elevated. An MRI of the leg showed no concern for osteomyelitis. Dr. Arenas was consulted for orthopedic evaluation and after discussion with the patient, he was taken to the OR on 10/08/2021 and underwent I&D of the abscess which he tolerated well. Postoperatively, he has done well. His blood sugar on admission was 500 and his A1c was >14. He was continued on his Levemir along with sliding scale during this admission and his blood sugars have been much improved suggesting poor compliance with his diabetes at home. Surgical wound cultures eventually grew strep agalactiae which was sensitive to vancomycin. He will need long-term IV antibiotics and wound care with daily dressing changes therefore it was felt that he would benefit from skilled care retirement placement. A bed has been found available at [facility]. PICC line is being placed and he will be discharged today. He will follow-up with Dr. Arenas on 10/15/2021 at 1345 hrs. Objective Vital signs: Temp Pulse Resp BP Pulse Ox 98.0 F 75 15 145/57 H 98 10/12/21 08:00 10/12/21 08:00 10/12/21 08:00 10/12/21 08:00 10/12/21 08:00 no acute distress - *Routine HEENT Exam Head: Present: normocephalic, atraumatic ENT: Present: mucous membranes moist - *Routine Respiratory Exam Present: CTA bilaterally - *Routine Cardiovascular Exam Present: RRR - *Routine Abdominal Exam Present: soft, normoactive bowel sounds. Absent: tenderness - *Routine Extremities Exam Comments: Left BKA. Dressing on left leg is intact, clean, and dry. Results Labs on day of discharge: Labs from last 24 hours 10/11/21 10/11/21 10/11/21 22:38 22:38 11:37 Sodium 132 L Potassium 4.0 Chloride 101 Carbon Dioxide 27 Anion Gap 8.0 BUN 14 Creatinine 0.80 Estimated Creat Clear 85 Estimated GFR 96 Est GFR ( Amer) 116 Glucose 80 D POC Glucose 167 H Calcium 9.1 Vancomycin Trough 18.7 H SARS-CoV-2 (PCR) Influenza A Untype (PCR) Influenza Type B (PCR) 10/11/21 11:30 Sodium Potassium Chloride Carbon Dioxide Anion Gap BUN Creatinine Estimated Creat Clear Estimated GFR Est GFR ( Amer) Glucose POC Glucose Calcium Vancomycin Trough SARS-CoV-2 (PCR) Not detected Influenza A Untype (PCR) Not detected Influenza Type B (PCR) Not detected Preliminary micro results at discharge 10/07/21 11:20 Blood Culture - Preliminary Blood NO GROWTH AFTER 48 HOURS 10/07/21 11:20 Blood Culture - Preliminary Blood NO GROWTH AFTER 48 HOURS DS: Diagnosis - Discharge Diagnosis (1) Cellulitis and abscess of leg Status:
--- NOTE | 2021-10-12 13:33 | PC.NURSE ---
Called Report to Stephanie kulkarni [place].
[2021-10-13 01:36] LABS: POC Glucose,Bedside 263 (70-110)
[2021-10-13 01:36] LABS: POC Glucose,Bedside 138 (70-110)
[2021-10-13 01:36] LABS: POC Glucose,Bedside 80 (70-110)
[2021-10-13 01:36] LABS: POC Glucose,Bedside 165 (70-110)
[2021-10-13 01:36] LABS: POC Glucose,Bedside 175 (70-110)
[2021-10-13 01:36] LABS: POC Glucose,Bedside 271 (70-110)
== END 2021-10-12 15:20 ==
LOC: ER 14:05 → ICU 20:33 → 2ND 21:26
PROVIDERS: Nurse Practitioner Family; Orthopaedic Surgery; Physician Assistant Surgical; Admitting Provider Family Medicine; Emergency Provider Emergency Medicine; PCP Family Medicine; Visit Provider Family Medicine
PROC: (CPT 11043; principal; 2021-10-08 15:00)
DX: E11.51 Type 2 diabetes mellitus with diabetic peripheral angiopathy without gangrene (principal); L03.116 Cellulitis of left lower limb; E11.65 Type 2 diabetes mellitus with hyperglycemia; Z79.4 Long term (current) use of insulin; Z89.512 Acquired absence of left leg below knee; Z95.1 Presence of aortocoronary bypass graft; Z20.822 Contact with and (suspected) exposure to COVID-19; B95.1 Streptococcus, group B, as the cause of diseases classified elsewhere
CPT/HCPCS: 11043; G0378; 36415; 36569; 71045; 73590; 73723; 80048; 80053; 80202; 82607; 82947; 82962; 83036; 83605; 84443; 85025; 85651; 86140; 87040; 87070; 87075; 87077; 87186; 87205; 97110; 97163; 97166; 99285; A9576; C9803; J2405; J2710; U0003; U0005

== ENCOUNTER → 2021-10-14 06:12 | Outpatient (REF) | payer SELFPAY ==
[2021-10-14 06:36] LABS: Anion Gap 10.2 mEq/L (5-15); Blood Urea Nitrogen 9 mg/dl (9-20); Calcium 8.6 mg/dl (8.4-10.2); Carbon Dioxide 27 mmol/L (22.0-30.0); Chloride 104 mmol/L (98-107); Estimated Glomerular Filt Rate 164 ml/min (>60); GFR (African American) 199 ML/MIN (>60); Glucose 172 mg/dl (74-100); Potassium 4.2 mmoL/L (3.5-5.1); Sodium 137 mmol/L (136-145)
[2021-10-14 06:41] LABS: Vancomycin,Trough 16.9 ug/mL (5.0-10.0)
== END ==
LOC: LAB.DROPOF 06:12
PROVIDERS: Visit Provider Family Medicine
DX: L03.116 Cellulitis of left lower limb (principal)
CPT/HCPCS: 80048; 80202

== ENCOUNTER → 2021-10-17 06:39 | Outpatient (CLI) | payer SELFPAY ==
[2021-10-17 07:33] LABS: Anion Gap 7.4 mEq/L (5-15); Blood Urea Nitrogen 10 mg/dl (9-20); Calcium 8.7 mg/dl (8.4-10.2); Carbon Dioxide 29 mmol/L (22.0-30.0); Chloride 104 mmol/L (98-107); Estimated Glomerular Filt Rate 164 ml/min (>60); GFR (African American) 199 ML/MIN (>60); Glucose 208 mg/dl (74-100); Potassium 4.4 mmoL/L (3.5-5.1); Sodium 136 mmol/L (136-145)
[2021-10-17 07:38] LABS: Vancomycin,Trough 13.1 ug/mL (5.0-10.0)
== END ==
PROVIDERS: PCP Family Medicine; Visit Provider Family Medicine
DX: L02.416 Cutaneous abscess of left lower limb (principal)
CPT/HCPCS: 80048; 80202

== ENCOUNTER → 2021-10-20 06:05 | Outpatient (CLI) | payer SELFPAY ==
[2021-10-20 06:36] LABS: Anion Gap 7.1 mEq/L (5-15); Blood Urea Nitrogen 11 mg/dl (9-20); Calcium 8.2 mg/dl (8.4-10.2); Carbon Dioxide 30 mmol/L (22.0-30.0); Chloride 104 mmol/L (98-107); Estimated Glomerular Filt Rate 133 ml/min (>60); GFR (African American) 161 ML/MIN (>60); Glucose 185 mg/dl (74-100); Potassium 4.1 mmoL/L (3.5-5.1); Sodium 137 mmol/L (136-145)
[2021-10-20 07:48] LABS: Vancomycin,Trough 20.8 ug/mL (5.0-10.0)
== END ==
PROVIDERS: PCP Family Medicine; Visit Provider Family Medicine
DX: L02.416 Cutaneous abscess of left lower limb (principal); Z51.81 Encounter for therapeutic drug level monitoring
CPT/HCPCS: 80048; 80202

== ENCOUNTER → 2021-10-30 13:36 | Outpatient (CLI) | payer SELFPAY ==
[2021-10-30 14:03] LABS: Basophils # 0.1 K/mm3 (0-0.2); Eosinophils # 0.4 K/mm3 (0.0-0.4); Eosinophils % 6.4 % (0.1-12.0); Hematocrit 31.3 % (42.0-52.0); Hemoglobin 9.5 g/dL (14.1-18.0); Lymphocytes # 1.4 K/mm3 (0.7-4.5); Lymphocytes % 21.7 % (10-50); Mean Corpuscular HGB Conc 30.2 g/dL (31.8-35.4); Mean Corpuscular Hemoglobin 24.6 pg (27.0-31.2); Mean Corpuscular Volume 81.5 fl (80-94); Monocytes # 0.5 K/mm3 (0.1-1.0); Monocytes % 7.4 % (1.7-9.3); Neutrophils % 63.5 % (37.0-80.0); Platelet Count 277 K/mm3 (142-424); Red Blood Count 3.84 M/mm3 (4.60-6.20); Red Cell Distribution Width 17.8 % (11.5-17.5); White Blood Count 6.4 K/mm3 (4.8-10.8)
[2021-10-30 14:48] LABS: C-Reactive Protein 38.5 mg/L (0-4)
[2021-10-30 15:21] LABS: Erythrocyte Sedimentation Rate 99 mm/hr (0-20)
== END ==
PROVIDERS: PCP Family Medicine; Visit Provider Physician Assistant Surgical
DX: L02.416 Cutaneous abscess of left lower limb (principal)
CPT/HCPCS: 36415; 85025; 85651; 86140

== ENCOUNTER → 2021-11-01 10:13 | Outpatient (REF) | payer SELFPAY ==
[2021-11-01 10:45] LABS: Anion Gap 8.3 mEq/L (5-15); Blood Urea Nitrogen 12 mg/dl (9-20); Calcium 8.8 mg/dl (8.4-10.2); Carbon Dioxide 31 mmol/L (22.0-30.0); Chloride 102 mmol/L (98-107); Estimated Glomerular Filt Rate 96 ml/min (>60); GFR (African American) 116 ML/MIN (>60); Glucose 222 mg/dl (74-100); Potassium 4.3 mmoL/L (3.5-5.1); Sodium 137 mmol/L (136-145)
[2021-11-01 10:50] LABS: Vancomycin,Trough 11.9 ug/mL (5.0-10.0)
== END ==
LOC: LAB.DROPOF 10:13
PROVIDERS: Visit Provider Family Medicine
DX: L02.416 Cutaneous abscess of left lower limb (principal)
CPT/HCPCS: 80048; 80202

== ENCOUNTER → 2021-11-05 10:41 | Outpatient (CLI) | payer SELFPAY ==
[2021-11-05 11:25] LABS: Chloride 101 mmol/L (98-107); Potassium 4.3 mmoL/L (3.5-5.1); Sodium 137 mmol/L (136-145)
[2021-11-05 11:28] LABS: Anion Gap 9.3 mEq/L (5-15); Blood Urea Nitrogen 12 mg/dl (9-20); Carbon Dioxide 31 mmol/L (22.0-30.0); Estimated Glomerular Filt Rate 133 ml/min (>60); GFR (African American) 161 ML/MIN (>60)
[2021-11-05 11:29] LABS: Calcium 8.8 mg/dl (8.4-10.2); Glucose 302 mg/dl (74-100)
[2021-11-05 12:12] LABS: Vancomycin,Trough 10.8 ug/mL (5.0-10.0)
== END ==
LOC: LAB.DROPOF 10:43
PROVIDERS: PCP Family Medicine; Visit Provider Family Medicine
DX: L02.416 Cutaneous abscess of left lower limb (principal); Z51.81 Encounter for therapeutic drug level monitoring
CPT/HCPCS: 80048; 80202

== ENCOUNTER → 2021-11-12 09:24 | Outpatient (CLI) | payer SELFPAY ==
[2021-11-12 11:26] LABS: Blood Urea Nitrogen 14 mg/dl (9-20); Calcium 9.1 mg/dl (8.4-10.2); Carbon Dioxide 29 mmol/L (22.0-30.0); Estimated Glomerular Filt Rate 96 ml/min (>60); GFR (African American) 116 ML/MIN (>60); Glucose 248 mg/dl (74-100)
[2021-11-12 11:27] LABS: Anion Gap 12.5 mEq/L (5-15); Chloride 102 mmol/L (98-107); Potassium 4.5 mmoL/L (3.5-5.1); Sodium 139 mmol/L (136-145)
== END ==
PROVIDERS: PCP Family Medicine; Visit Provider Family Medicine
DX: Z51.81 Encounter for therapeutic drug level monitoring (principal); Z79.01 Long term (current) use of anticoagulants; L02.416 Cutaneous abscess of left lower limb
CPT/HCPCS: 80048; 80202

== ENCOUNTER → 2021-11-22 07:52 | Outpatient (REF) | payer SELFPAY ==
[2021-11-22 10:56] LABS: Anion Gap 9.3 mEq/L (5-15); Blood Urea Nitrogen 17 mg/dl (9-20); Calcium 9.1 mg/dl (8.4-10.2); Carbon Dioxide 30 mmol/L (22.0-30.0); Chloride 103 mmol/L (98-107); Estimated Glomerular Filt Rate 133 ml/min (>60); GFR (African American) 161 ML/MIN (>60); Glucose 78 mg/dl (74-100); Potassium 4.3 mmoL/L (3.5-5.1); Sodium 138 mmol/L (136-145)
[2021-11-22 11:02] LABS: Vancomycin,Trough 19.1 ug/mL (5.0-10.0)
== END ==
LOC: LAB.DROPOF 07:52
PROVIDERS: Visit Provider Family Medicine
DX: I10 Essential (primary) hypertension (principal); L02.416 Cutaneous abscess of left lower limb; Z51.81 Encounter for therapeutic drug level monitoring; Z79.2 Long term (current) use of antibiotics
CPT/HCPCS: 80048; 80202

== ENCOUNTER → 2021-11-26 08:58 | Outpatient (CLI) | payer SELFPAY ==
[2021-11-26 10:20] LABS: Anion Gap 10.8 mEq/L (5-15); Blood Urea Nitrogen 23 mg/dl (9-20); Calcium 9.4 mg/dl (8.4-10.2); Carbon Dioxide 30 mmol/L (22.0-30.0); Chloride 104 mmol/L (98-107); Estimated Glomerular Filt Rate 111 ml/min (>60); GFR (African American) 135 ML/MIN (>60); Glucose 167 mg/dl (74-100); Potassium 4.8 mmoL/L (3.5-5.1); Sodium 140 mmol/L (136-145)
== END ==
PROVIDERS: PCP Family Medicine; Visit Provider Family Medicine
DX: L03.116 Cellulitis of left lower limb (principal); B95.1 Streptococcus, group B, as the cause of diseases classified elsewhere
CPT/HCPCS: 80048; 80202

== ENCOUNTER 2021-11-26 11:56 | Outpatient (CLI) | payer MEDICARE, SELFPAY | END 2021-11-26 12:50 | disposition home or self-care (01) | LOC: INF 11:57 | PROVIDERS: PCP Family Medicine; Visit Provider Family Medicine | DX: E87.5 Hyperkalemia (principal) ==

== ENCOUNTER 2021-11-27 22:58 | Observation (INO) | payer SELFPAY ==
[2021-11-27 22:59] VITALS: BP 169/67; PULSE 86; RESP 18; TEMP 36.6; O2SAT 93; BMI 39.9
[2021-11-27 23:37] LABS: Microscopic, Urine URINE MICROSCOPIC (MICROSCOPIC)
[2021-11-27 23:45] LABS: Appearance,Urine CLEAR (Clear); Bilirubin,Urine Negative (Negative); Blood, Urine 2+ (Negative); Color,Urine YELLOW (Yellow); Glucose,Urine (UA) Negative (Negative); Ketones,Urine Negative (Negative); Leukocyte Esterase,Urine Negative (Negative); Nitrate,Urine Negative (Negative); Protein,Urine TRACE (Negative); Specific Gravity, Urine >= 1.030 (1.005-1.030); Urobilinogen,Urine 0.2 EU/dl (0.2)
[2021-11-27 23:58] LABS: RBC,Urine Occasional #/hpf (0-3); WBC,Urine Occasional #/hpf (0-3)
[2021-11-28] VITALS (14 sets, daily range): BP systolic 99–141; BP diastolic 46–80; PULSE 70–92; RESP 16–19; TEMP 36.5–37.1; O2SAT 84–100; BMI 42.3
--- NOTE | 2021-11-28 | CT_ITS ---
PROCEDURE INFORMATION: Exam: CT Abdomen And Pelvis With Contrast Exam date and time: 11/28/2021 12:31 AM Age: 71 years old Clinical indication: Abdominal pain TECHNIQUE: Imaging protocol: Computed tomography of the abdomen and pelvis with contrast. Radiation optimization: All CT scans at this facility use at least one of these dose optimization techniques: automated exposure control; mA and/or kV adjustment per patient size (includes targeted exams where dose is matched to clinical indication); or iterative reconstruction. Contrast material: ISOVUE; Contrast volume: 75 ml; Contrast route: IV; COMPARISON: CR XR CHEST PORTABLE PICC PLAC 10/12/2021 12:01 PM FINDINGS: Lungs: Mild diffuse interstitial thickening. Pleural spaces: Large bilateral pleural effusions and contiguous atelectasis. Heart: The heart is enlarged. Small pericardial effusion. Diaphragm: Sliding hiatal hernia. Liver: Liver is diffusely hypoattenuating but without focal lesion. Gallbladder and bile ducts: Gallbladder wall thickening and pericholecystic fluid. Pancreas: Atrophy of the otherwise unremarkable pancreas. Spleen: Spleen is negative for focal or diffuse lesion. Adrenal glands: The adrenal glands are negative for evidence of thickening or nodule. Kidneys and ureters: Bosniak 1 cysts in the bilateral kidneys. No additional workup for Bosniak 1 cysts is recommended. Perinephric inflammation and fluid bilaterally. Stomach and bowel: Unremarkable. No obstruction. No mucosal thickening. Appendix: The appendix appears normal. Intraperitoneal space: Fluid within the mesentery, colic gutters and pelvis. Vasculature: Calcifications within thoracic aorta and coronary arteries. Lymph nodes: Unremarkable. No enlarged lymph nodes. Urinary bladder: Vega catheter within the urinary bladder. Reproductive: Unremarkable as visualized. Bones/joints: Prior median sternotomy wires. Skeletal structures are negative for evidence of aggressive process or acute fracture. There are diffuse degenerative changes. Soft tissues: Fat containing left inguinal hernia. Diffuse fluid, stranding and haziness throughout the subcutaneous tissues of the lower chest, abdomen, and pelvis. IMPRESSION: 1. Congestive heart failure or fluid overload with cardiomegaly, diffuse interstitial edema, bilateral pleural effusions, diffuse 3rd spacing into the subcutaneous tissues throughout the chest, abdomen and pelvis, gallbladder wall thickening and pericholecystic fluid and fluid throughout the mesentery, colic gutters and within the pelvis. 2. Calcifications within thoracic aorta and coronary arteries. 3. Prior median sternotomy wires. 4. Small pericardial effusion. 5. Hepatic steatosis 6. Sliding hiatal hernia. 7. Bosniak 1 cysts in the bilateral kidneys. No additional workup for Bosniak 1 cysts is recommended. 8. Perinephric inflammation and fluid bilaterally. This is usually due to chronic renal medical disease with infection to be excluded. 9. Vega catheter within the urinary bladder. 10. Fat containing left inguinal hernia. COMMENTS: Consistent with the [employer]'s Incidental Findings Committee white paper (J Am Parker Radiol 2018): Any incidental renal lesion less than 1 cm or classified as too small to characterize, or any incidental cystic renal lesion characterized as simple-appearing, is likely benign. No follow-up imaging is recommended for these lesions per consensus recommendations based on imaging criteria.
[2021-11-28 00:04] LABS: Chloride 100 mmol/L (98-107)
[2021-11-28 00:05] LABS: Sodium 136 mmol/L (136-145)
[2021-11-28 00:07] LABS: Alanine Aminotransferase 21 U/L (12-78); Aspartate Amino Transferase 55 U/L (17-59)
[2021-11-28 00:08] LABS: Albumin/Globulin Ratio 1.2 (1.1-1.8); Alkaline Phosphatase 137 U/L (38-126); Basophils # 0.1 K/mm3 (0-0.2); Basophils % 0.9 % (0.1-2.0); Bilirubin,Total 0.7 mg/dl (0.2-1.3); Calcium 8.3 mg/dl (8.4-10.2); Eosinophils # 0.3 K/mm3 (0.0-0.4); Eosinophils % 4.1 % (0.1-12.0); Globulin 3.3 g/dL (1.3-3.2); Glucose 173 mg/dl (74-100); Hematocrit 32.1 % (42.0-52.0); Hemoglobin 9.8 g/dL (14.1-18.0); Lymphocytes % 15.2 % (10-50); Mean Corpuscular HGB Conc 30.5 g/dL (31.8-35.4); Mean Corpuscular Hemoglobin 24.9 pg (27.0-31.2); Mean Corpuscular Volume 81.8 fl (80-94); Mean Platelet Volume 8.8 fl (7.4-10.4); Monocytes # 0.6 K/mm3 (0.1-1.0); Monocytes % 8.6 % (1.7-9.3); Neutrophils # 4.8 K/mm3 (1.8-7.8); Neutrophils % 71.2 % (37.0-80.0); Platelet Count 308 K/mm3 (142-424); Red Blood Count 3.93 M/mm3 (4.60-6.20); Red Cell Distribution Width 17.7 % (11.5-17.5); Total Protein,Serum 7.3 g/dl (6.3-8.2); White Blood Count 6.7 K/mm3 (4.8-10.8)
--- NOTE | 2021-11-28 00:09 | PC.NURSE ---
Dr. Caldera notified of critical potassium
[2021-11-28 00:12] LABS: Blood Urea Nitrogen 21 mg/dl (9-20)
[2021-11-28 00:13] LABS: C-Reactive Protein 12.3 mg/L (0-4); Creatinine Clearance Estimated 106 mL/min (50-200); Estimated Glomerular Filt Rate 96 ml/min (>60); GFR (African American) 116 ML/MIN (>60)
--- NOTE | 2021-11-28 00:33 | PC.NURSE ---
PT TO CT VIA STRETCHER.
--- NOTE | 2021-11-28 00:39 | HMH.EDUROGM ---
Discharge Plan Disposition Patient Disposition: Admitted as Observation Chief Complaint: Urogenital-Male Clinical Impressions Clinical Impression: Type 2 diabetes mellitus, Peripheral vascular disease in diabetes mellitus, Hx of CABG, History of left below knee amputation, Acute hyperkalemia, CHF (congestive heart failure), Obesity Discharge ED Provider: Pradeep Caldera Male Urogenital HPI General Chief complaint: Urogenital-Male Stated complaint: UNABLE TO VOID Time Seen by Provider: 11/28/21 00:39 Mode of Arrival: EMS Source of Information: Patient, EMS and Medical Record Limitations: Physical Limitations Description of Symptoms (Recalled from ER Triage Doc. by RN): PT REPORTS SWELLING OF SCROTUM, PENIS AND LOWER ABDOMEN X 2 DAYS. PT REPORTS HE HAS NOT BEEN ABLE TO VOID X 2 DAYS. TODAY, TOILET LID BROKE. LACERATION TO PENIS PRESENT. History of Present Illness HPI Narrative: pt sent from f with swollen genitals and reported dec urination with lower abd pain x 2 days MD Complaint: testicle swelling Onset (ago): day(s) Duration: intermittent Location: penis, right testicle and left testicle Severity: moderate Reports urinary retention Related Data Sexually active: No Home Medications Medication Instructions Recorded Confirmed aspirin 81 mg tablet,delayed 81 mg PO DAILY HEART HEALTH 10/07/21 11/28/21 release atorvastatin 40 mg tablet 40 mg PO HS Cholesterol 10/07/21 11/28/21 ferrous sulfate 325 mg (65 mg 325 mg PO DAILY Supplement 10/07/21 11/27/21 iron) tablet insulin detemir U-100 100 unit/mL 18 unit SQ DAILY Diabetes 10/07/21 11/27/21 (3 mL) subcutaneous pen metformin 500 mg tablet 1,000 mg PO BID Diabetes 10/07/21 11/27/21 metoprolol tartrate 50 mg tablet 50 mg PO BID Hypertension 10/07/21 11/27/21 pantoprazole 40 mg tablet,delayed 40 mg PO HS GERD 10/07/21 11/27/21 release ropinirole 1 mg tablet 1 mg PO HS Restless leg 10/07/21 11/27/21 sertraline 25 mg tablet 25 mg PO DAILY Depression 10/07/21 11/27/21 gabapentin 300 mg capsule 300 mg PO TID NERVE PAIN 11/28/21 11/27/21 vancomycin 1.75 gram/350 mL-water 1.75 gm IV Q18H Infection 11/28/21 11/27/21 for injection(PEG,NADA) IV piggyback Previous Rx's Medication Instructions Recorded acetaminophen 500 mg tablet 1,000 mg PO Q6HP PRN Mild To 10/12/21 Moderate Pain #30 tabs Allergies Allergy/AdvReac Type Severity Reaction Status Date / Time No Known Allergies Allergy Verified 11/20/21 14:22 PFSH [facility] Social History (Updated 11/20/21 @ 14:22 by Nolvia Terrell [facility]) Smoking Status: Never smoker alcohol intake: current substance use type: denies use current occupational status: disabled Travel in the last 8 weeks: None ROS Obtained: Yes All systems reviewed & no additional complaints except as documented Constitutional Constitutional: Denies fever(s) and Denies headache(s) Eyes Eyes: Denies diplopia ENT Ears, Nose, Mouth, and Throat: Denies dizziness, Denies headache(s) and Denies neck pain Cardiovascular Cardiovascular: Denies chest pain with activity and Reports dyspnea Respiratory Respiratory: Reports dyspnea Gastrointestinal Gastrointestingal: Denies vomiting Genitourinary Male Genitourinary: Reports as per HPI, Reports difficulty urinating and Reports scrotal swelling Musculoskeletal Musculoskeletal: Denies neck pain Integumentary/Breasts Skin/Breast: Denies rash Neurologic Neurologic: Denies abnormal speech, Denies dizziness, Denies focal weakness and Denies headache(s) Physical Exam General General appearance: alert, in no apparent distress and obese Head Head exam: normocephalic Eye Eye exam: Present PERRL and EOMI; Absent scleral icterus ENT ENT exam: Present mucous membranes moist Neck Neck exam: Present trachea midline; Absent full ROM Respiratory Respiratory exam: Present other (dec bs bilat ) Cardiovascular Cardiovascular exam: Present regular rate, systolic murmur and +S4 Abdominal Exa
[2021-11-28 00:47] LABS: Erythrocyte Sedimentation Rate 18 mm/hr (0-20)
--- NOTE | 2021-11-28 00:47 | XR_ITS ---
PROCEDURE INFORMATION: Exam: XR Chest Exam date and time: 11/28/2021 1:00 AM Age: 71 years old Clinical indication: Cough TECHNIQUE: Imaging protocol: Radiologic exam of the chest. Views: 1 view. COMPARISON: CR XR CHEST PORTABLE PICC PLAC 10/12/2021 12:01 PM FINDINGS: Lungs: Prominence of central pulmonary vasculature and interstitium. Pleural spaces: Bilateral pleural effusions and contiguous atelectasis. Heart/Mediastinum: Cardiomegaly. Bones/joints: Prior median sternotomy wires. IMPRESSION: Congestive heart failure/fluid overload with pleural effusions.
[2021-11-28 00:59] LABS: Procalcitonin 0.065 ng/mL (0.0-2.0)
--- NOTE | 2021-11-28 00:59 | ECG_ITS ---
APPROVED REPORT Exam: Resting ECG HR:75 bpm ECG Measurements Heart Rate 75 AXES DE 120 P 61 QRSd 87 QRS 87 QT 400 T 31 QTc 429 Conclusion SINUS RHYTHM NORMAL ECG UNCONFIRMED REPORT Electronically signed by : Hardeep Darby MD 11/28/2021 14:46:46
[2021-11-28 01:12] LABS: NT Pro Brain Natriuretic Pep. 6370 pg/mL (0-125)
[2021-11-28 01:12] LABS: Carbon Dioxide 30 mmol/L (22.0-30.0)
--- NOTE | 2021-11-28 02:07 | PC.NURSE ---
Dr. Caldera s/w Dr. Chou for possible admission
--- NOTE | 2021-11-28 02:08 | PC.NURSE ---
Dr. Chou agrees yenni admit. Called Max, s/w S Call RN for bed assignment: Observation admit d/t Acute CHF & Hyperkalemia.
[2021-11-28 02:20] LABS: Coronavirus 19, PCR Not Detected (NotDetected); Influenza A, PCR Not Detected (NotDetected); Influenza B, PCR Not Detected (NotDetected)
[2021-11-28 02:46] LABS: T4 (Thyroxine) 9.6 ug/dl (5.53-11.0)
[2021-11-28 03:00] LABS: Thyroid Stimulating Hormone 3.03 uIU/mL (0.465-4.68)
--- NOTE | 2021-11-28 03:10 | PC.NURSE ---
REPORT TO LEXIE ADDISON. PT MADE AWARE OF PLAN TO TRANSFER TO FLOOR.
--- NOTE | 2021-11-28 03:16 | PC.NURSE ---
PT ARRIVED VIA STRETCHER AT THIS TIME
--- NOTE | 2021-11-28 03:27 | CA_ITS ---
APPROVED REPORT EXAM: Comprehensive 2D, Doppler, and color-flow Echocardiogram [place]: Cindy Phoenix RDCS Ht: 5 ft 5 in Wt: 240lbs BSA: 2.14 BP: 137/87 mmHg Indications: CHF,CAD,PVD 2D Dimensions LVOT 1.92 cm (M/F) 1.5-2.5 M-Mode Dimensions RVDd 3.16 cm (0.9-2.6) LA Diam 3.87 cm (1.9-4.0) LVDd 4.85 cm (3.5-5.7) Ao Diam 3.23 cm (2.0-3.7) LVDs 3.72 cm (3.5-5.7) IVSd 0.72 cm (0.6-1.1) PWd 0.84 cm (0.6-1.1) EF (Teich) 46.60% FS 23.30% EDV (Teich) 110.20 mL TAPSE 1.60 (<1.7) ESV (Teich) 58.90 mL LV Diastology E Decel Time 150.00 (160-240 msec) E/A Ratio 1.7 MED E' 6.00 (< 7 cm/sec) E'/MED E' Ratio 14.10 (>14) Mitral Valve MV E Max Amandeep. 85.00 (40-130 cm/s) MV A Velocity 50.00 (40-130 cm/s) E/A Ratio 1.69 MV Decel. Time 150.00 (160-240 ms) MV PHT 44.00 ms Tricuspid Valve TR P. Velocity 281.00 cm/s RAP Estimate 10.00 mmHg RVSP 41.50 mmHg Left Ventricle Left atrium is mildly enlarged, left ventricle is normal size mild concentric left ventricular hypertrophy, estimated ejection fraction 55% with no regional wall motion abnormality, diastolic parameters are inconclusive. Right Ventricle Right atrium and right ventricle are mildly enlarged with normal contractility. Aortic Valve Aortic valve is minimally thickened and calcified without aortic stenosis or aortic insufficiency. Mitral Valve Mitral valve is minimally thickened, there is no mitral stenosis, there is mild mitral regurgitation. Tricuspid Valve Tricuspid valve grossly normal, there is mild tricuspid regurgitation, calculated right ventricular systolic pressure is 41 mmHg. Pulmonic Valve Pulmonic valve is poorly visualized. Great Vessels Aortic root is normal size. Inferior vena cava is poorly visualized. Pericardium No significant pericardial effusion noted. Conclusion 1. Biatrial enlargement, normal left ventricular size, mild concentric left ventricular hypertrophy, estimated ejection fraction 55% with no regional wall motion abnormality, diastolic parameters are inconclusive. 2. Mildly enlarged right ventricle with normal contractility. 3. Mild mitral and tricuspid regurgitation, calculated right ventricular systolic pressure is 41 mmHg. 4. No significant pericardial effusion noted. 5. Inferior vena cava is poorly visualized. Electronically signed by : Sudeep Swenson MD 11/29/2021 13:17:11
--- NOTE | 2021-11-28 03:44 | PC.NURSE ---
pt password- EMIL ANAYA
--- NOTE | 2021-11-28 04:23 | PC.NURSE ---
Pt has had no complaints since being admitted to 2nd floor. he remains on 2L o2 nc and is tolerating well. no needs voiced at this time. magdaleno light within reach.
[2021-11-28 05:17] LABS: POC Glucose,Bedside 143 (70-110)
--- NOTE | 2021-11-28 07:26 | HMH.PHAINT1 ---
Pharmacy Intervention Comments: home medication list verified using list from outpatient pharmacy
[2021-11-28 08:10] LABS: Basophils # 0.1 K/mm3 (0-0.2); Basophils % 1.2 % (0.1-2.0); Eosinophils # 0.2 K/mm3 (0.0-0.4); Eosinophils % 4.1 % (0.1-12.0); Hematocrit 31.4 % (42.0-52.0); Hemoglobin 9.3 g/dL (14.1-18.0); Lymphocytes # 1.3 K/mm3 (0.7-4.5); Lymphocytes % 22.4 % (10-50); Mean Corpuscular HGB Conc 29.6 g/dL (31.8-35.4); Mean Corpuscular Hemoglobin 24.1 pg (27.0-31.2); Mean Corpuscular Volume 81.6 fl (80-94); Monocytes # 0.7 K/mm3 (0.1-1.0); Monocytes % 11.5 % (1.7-9.3); Neutrophils # 3.4 K/mm3 (1.8-7.8); Neutrophils % 60.9 % (37.0-80.0); Platelet Count 277 K/mm3 (142-424); Red Blood Count 3.85 M/mm3 (4.60-6.20); Red Cell Distribution Width 17.8 % (11.5-17.5); White Blood Count 5.6 K/mm3 (4.8-10.8)
[2021-11-28 08:18] LABS: Chloride 100 mmol/L (98-107); Sodium 139 mmol/L (136-145)
[2021-11-28 08:19] LABS: Potassium 4.4 mmoL/L (3.5-5.1)
[2021-11-28 08:21] LABS: Blood Urea Nitrogen 20 mg/dl (9-20); Creatinine Clearance Estimated 58 mL/min (50-200); Estimated Glomerular Filt Rate 96 ml/min (>60); GFR (African American) 116 ML/MIN (>60)
[2021-11-28 08:22] LABS: Anion Gap 8.4 mEq/L (5-15); Calcium 8.5 mg/dl (8.4-10.2); Carbon Dioxide 35 mmol/L (22.0-30.0); Glucose 134 mg/dl (74-100)
--- NOTE | 2021-11-28 09:29 | EXP.ACUTE.PN ---
Subjective *Date: 11/28/21 *Time: 09:34 Interval history: Admitted with edema of the lower extremities and of the scrotum. Abrasion laceration of the penis while moving on to the toilet. Weight gain has been huge. He weighed 190 in September he is to 50 for now. See ER record. Medical Exam Vital signs and Labs for Last 24 Hours: Temp Pulse Resp BP Pulse Ox 97.7 F 74 17 118/80 100 11/28/21 08:00 11/28/21 08:00 11/28/21 08:00 11/28/21 08:00 11/28/21 08:00 Laboratory Results - last 24 hr 11/27/21 23:30: Urine Color Yellow, Urine Appearance Clear, Urine pH 6.0, Ur Specific Arena >= 1.030, Urine Protein Trace, Urine Glucose (UA) Negative, Urine Ketones Negative, Urine Blood 2+, Urine Nitrate Negative, Urine Bilirubin Negative, Urine Urobilinogen 0.2, Ur Leukocyte Esterase Negative, Urine RBC Occasional, Urine WBC Occasional, Ur Squamous Epith Cells None, Urine Bacteria None 11/27/21 23:48: WBC 6.7, RBC 3.93 L, Hgb 9.8 L, Hct 32.1 L, MCV 81.8, MCH 24.9 L, MCHC 30.5 L, RDW 17.7 H, Plt Count 308, MPV 8.8, Neut % (Auto) 71.2, Lymph % (Auto) 15.2, [place] % (Auto) 8.6, Eos % (Auto) 4.1, Baso % (Auto) 0.9, Neut # (Auto) 4.8, Lymph # (Auto) 1.0, [place] # (Auto) 0.6, Eos # (Auto) 0.3, Baso # (Auto) 0.1, ESR 18 11/27/21 23:48: Sodium 136, Potassium 6.0 H D, Chloride 100, Carbon Dioxide 30, Anion Gap 12.0, BUN 21 H, Creatinine 0.80, Estimated Creat Clear 106, Estimated GFR 96, Est GFR ( Amer) 116, Glucose 173 H, Calcium 8.3 L, Total Bilirubin 0.7, AST 55, ALT 21, Alkaline Phosphatase 137 H, C-Reactive Protein 12.3 H, Total Protein 7.3, Albumin 4.0, Globulin 3.3 H, Albumin/Globulin Ratio 1.2, Procalcitonin 0.065 11/28/21 00:00: NT-Pro-B Natriuret Pep 6370 H 11/28/21 00:00: TSH 3.03, Thyroxine (T4) 9.6 11/28/21 02:03: SARS-CoV-2 (PCR) Not detected, Influenza A Untype (PCR) Not detected, Influenza Type B (PCR) Not detected 11/28/21 05:10: POC Glucose 143 H 11/28/21 08:03: WBC 5.6, RBC 3.85 L, Hgb 9.3 L, Hct 31.4 L, MCV 81.6, MCH 24.1 L, MCHC 29.6 L, RDW 17.8 H, Plt Count 277, MPV 9.0, Neut % (Auto) 60.9, Lymph % (Auto) 22.4, [place] % (Auto) 11.5 H, Eos % (Auto) 4.1, Baso % (Auto) 1.2, Neut # (Auto) 3.4, Lymph # (Auto) 1.3, [place] # (Auto) 0.7, Eos # (Auto) 0.2, Baso # (Auto) 0.1 11/28/21 08:03: Sodium 139, Potassium 4.4 D, Chloride 100, Carbon Dioxide 35 H, Anion Gap 8.4, BUN 20, Creatinine 0.80, Estimated Creat Clear 58, Estimated GFR 96, Est GFR ( Amer) 116, Glucose 134 H D, Calcium 8.5 I & O for Labs for Last 24 Hours: Intake & Output 11/25/21 11/26/21 11/27/21 11/28/21 11:59 11:59 11:59 11:59 Intake Total 466 / 466 Output Total 2099 / 2099 Balance -1634 / -1634 Weight 254 lb 4 oz Head: normocephalic Neck: normal inspection Respiratory: respiratory distress, stridor or diminished air movement Cardiac: Reg Rate and Rhythm GI: soft and tenderness Rectal (male): deferred (male): scrotal swelling (With an abrasion laceration of the dorsal aspect of the penis on the foreskin. Edema is marked) Comment:: Vega catheter is in place. Extremities: normal inspection Comment:: Left BKA. Right leg is edematous. The wound on the left seems to be healing fairly well. Skin: intact (Apart from the above descriptions.) Neuro: Cranial Nerve 2-12 Intact and Motor Function Intact Assessment and Plan *Assessment and plan (1) CHF (congestive heart failure): Status: Acute Category: Medical Code(s): I50.9 - Heart failure, unspecified (2) Acute hyperkalemia: Status: Acute Category: Medical Code(s): E87.5 - Hyperkalemia (3) Postoperative follow-up: Status: Acute Category: Medical Code(s): Z09 - Encounter for follow-up examination after completed treatment for conditions other than malignant neoplasm (4) Type 2 diabetes mellitus: Status: Acute Category: Medical Code(s): E11.9 - Type 2 diabetes mellitus without complications (5) Peripheral vascular disease
--- NOTE | 2021-11-28 09:32 | EXP.HP ---
History of Present Illness *Admission Date: 11/28/21 *Reason for visit:: shortness of breath, scrotal edema *History of present illness: Mr. Vergara is a 71-year-old male who is presently at [facility] for a left leg wound. He has a left BKA. He had been on vancomycin and he states this was discontinued and his PICC line was removed on Thursday by Dr. Arenas. He states he is not sure why he is in the hospital today. He became more short of breath and states he was transported to the ER. According to the ER note, he had had swelling of his scrotum, penis, and lower abdomen for a few days and had been unable to void. He was seen in the emergency room and did have testicular swelling and urinary retention. A catheter was placed and he has had good output. His BNP was found to be elevated and his potassium was elevated as well. He was admitted and given IV Lasix. Cardiology was consulted. [facility] Medical History (Updated 11/28/21 @ 09:48 by LINDA Milligan) Arthritis Cellulitis and abscess of leg CHF (congestive heart failure) Depression GERD (gastroesophageal reflux disease) History of left below knee amputation Obesity Peripheral vascular disease in diabetes mellitus Type 2 diabetes mellitus Uncontrolled diabetes mellitus Surgical History (Updated 11/28/21 @ 09:42 by LINDA Milligan) Hx of CABG Family History (Updated 11/28/21 @ 09:42 by LINDA Milligan) Diabetes Coronary artery disease Social History Smoking Status: Never smoker alcohol intake: current substance use type: denies use current occupational status: disabled Travel in the last 8 weeks: None Review of Systems Constitutional Constitutional: Denies fatigue, Denies fever(s) and Denies headache(s) Eyes Eyes: Denies blurry vision and Denies diplopia ENT Ears, Nose, Mouth, and Throat: Denies dizziness, Denies headache(s), Denies nasal congestion and Denies sore throat *Cardiovascular Cardiovascular: Denies chest pain and Reports dyspnea *Respiratory Respiratory: Denies cough and Reports dyspnea *Gastrointestinal Gastrointestinal: Reports abdominal pain, Denies diarrhea, Denies nausea and Denies vomiting *Genitourinary Genitourinary: Reports difficulty urinating and Reports scrotal swelling *Musculoskeletal Musculoskeletal: Denies arthralgias *Neurologic Neurologic: Denies abnormal speech, Denies dizziness, Denies localized weakness and Denies headache(s) Endocrine Endocrine: Denies fatigue Meds Home Medications and Allergies Home Medications Medication Instructions Recorded Confirmed Type aspirin 81 mg tablet,delayed 81 mg PO DAILY Heart disease 10/07/21 11/28/21 History release atorvastatin 40 mg tablet 40 mg PO HS Cholesterol 10/07/21 11/28/21 History ferrous sulfate 325 mg (65 mg 325 mg PO DAILY iron supplement 10/07/21 11/27/21 History iron) tablet insulin detemir U-100 100 unit/mL 18 unit SQ DAILY Diabetes 10/07/21 11/27/21 History (3 mL) subcutaneous pen metformin 500 mg tablet 1,000 mg PO BID Diabetes 10/07/21 11/27/21 History metoprolol tartrate 50 mg tablet 50 mg PO BID Hypertension 10/07/21 11/27/21 History pantoprazole 40 mg tablet,delayed 40 mg PO HS acid reflux 10/07/21 11/27/21 History release ropinirole 1 mg tablet 1 mg PO HS Restless leg syndrome 10/07/21 11/27/21 History sertraline 25 mg tablet 25 mg PO DAILY Depression 10/07/21 11/27/21 History acetaminophen 500 mg tablet 1,000 mg PO Q6HP PRN Mild To 10/12/21 11/28/21 Rx Moderate Pain #30 tabs gabapentin 300 mg capsule 300 mg PO TID nerve pain 11/28/21 11/27/21 History trazodone 50 mg tablet 50 mg PO HS Insomnia 11/28/21 11/28/21 History vancomycin 1.75 gram/350 mL-water 1.75 gm IV Q18H Infection 11/28/21 11/27/21 History for injection(PEG,[place]) IV piggyback New Prescriptions to Start Prescriptions: Allergies Allergy/AdvReac Type
--- NOTE | 2021-11-28 09:59 | EXP.CARD.CON ---
History of Present Illness History of Present Illness Consult date: 11/28/21 Requesting physician: Jaskaran Chou Consult reason: shortness of breath Chief complaint: SOA, Swelling Additional Medical History:: 1. CAD A. Coronary bypass grafting, 2007, [place], [place] 2. Hypertension 3. Diabetes mellitus, treated for about 10 years 4. Hyperlipidemia 5. Left BKA, 2020 A. Surgical debridement of left knee, 10/2021 6. Congestive heart failure, 11/28/2021 History of present illness: 71-year-old white male with history as noted above was transferred from rehab facility (recovering from recent surgery for cellulitis/abscess of the left knee) for complaint of shortness of breath x2 days. Patient denies any chest pain, pressure or tightness but has noticed increased swelling of legs and abdomen including his scrotal area over the last couple of days. He has been unable to lie down at night due to shortness of breath. Initial evaluation revealed chest x-ray and CT evidence of CHF, bilateral pleural effusions and third spacing of the subcutaneous tissues throughout the chest abdomen and pelvis. BNP greater than 6000. EKG on admission showed sinus rhythm at 75 bpm with no acute ST segment changes. Echocardiogram has been performed with preliminary results estimating EF at about 45% with mild to moderate MR. Official reading is pending. Patient did receive IV Lasix in the ER and symptoms have improved since then. Hyperkalemia of 6 on admission has improved to 4.4 at the time of my consult. PFSH PFSH Medical History (Updated 11/28/21 @ 10:15 by LINDA De Leon) Arthritis Cellulitis and abscess of leg CHF (congestive heart failure) Depression GERD (gastroesophageal reflux disease) History of left below knee amputation HTN (hypertension) Hyperlipidemia associated with type 2 diabetes mellitus Obesity Peripheral vascular disease in diabetes mellitus Type 2 diabetes mellitus Uncontrolled diabetes mellitus Surgical History (Updated 11/28/21 @ 09:42 by LINDA Milligan) Hx of CABG Family History (Updated 11/28/21 @ 09:42 by LINDA Milligan) Diabetes Coronary artery disease Social History Smoking Status: Never smoker alcohol intake: current substance use type: denies use current occupational status: disabled Travel in the last 8 weeks: None Review of Systems Constitutional Constitutional: Denies headache(s) ENT Ears, Nose, Mouth, and Throat: Denies dizziness and Denies headache(s) *Cardiovascular Cardiovascular: Reports dyspnea *Respiratory Respiratory: Reports dyspnea *Neurologic Neurologic: Denies abnormal speech, Denies dizziness, Denies localized weakness and Denies headache(s) Exam Data for Last 24 hours Vital signs and Labs for Last 24 Hours: Temp Pulse Resp BP Pulse Ox 97.7 F 74 17 118/80 100 11/28/21 08:00 11/28/21 08:00 11/28/21 08:00 11/28/21 08:00 11/28/21 08:00 Laboratory Results - last 24 hr 11/27/21 23:30: Urine Color Yellow, Urine Appearance Clear, Urine pH 6.0, Ur Specific [place] >= 1.030, Urine Protein Trace, Urine Glucose (UA) Negative, Urine Ketones Negative, Urine Blood 2+, Urine Nitrate Negative, Urine Bilirubin Negative, Urine Urobilinogen 0.2, Ur Leukocyte Esterase Negative, Urine RBC Occasional, Urine WBC Occasional, Ur Squamous Epith Cells None, Urine Bacteria None 11/27/21 23:48: WBC 6.7, RBC 3.93 L, Hgb 9.8 L, Hct 32.1 L, MCV 81.8, MCH 24.9 L, MCHC 30.5 L, RDW 17.7 H, Plt Count 308, MPV 8.8, Neut % (Auto) 71.2, Lymph % (Auto) 15.2, [place] % (Auto) 8.6, Eos % (Auto) 4.1, Baso % (Auto) 0.9, Neut # (Auto) 4.8, Lymph # (Auto) 1.0, [place] # (Auto) 0.6, Eos # (Auto) 0.3, Baso # (Auto) 0.1, ESR 18 11/27/21 23:48: Sodium 136, Potassium 6.0 H D, Chloride 100, Carbon Dioxide 30, Anion Gap 12.0, BUN 21 H, Creatinine 0.80, Estimated Creat Clear 106, Estimated GFR 96, Est GFR ( Amer) 116, Glucose 173 H,
[2021-11-28 10:35] LABS: Troponin I < 0.01 ng/ml (0.00-0.034)
[2021-11-28 11:41] LABS: POC Glucose,Bedside 162 (70-110)
--- NOTE | 2021-11-28 14:52 | PC.NURSE ---
rounded on patient. no concerns or questions noted. no needs voiced. encouraged him to ring out as needed
[2021-11-28 17:23] LABS: POC Glucose,Bedside 198 (70-110)
--- NOTE | 2021-11-28 18:09 | PC.NURSE ---
PT HAS HAD NO COMPLAINTS T/O SHIFT. HAS SLEPT AT INTERVALS. 2L O2 VIA NC, LUNGS CLEAR/DIMINISHED. ALERT X4. GLASGOW IN PLACE WITH ADEQUATE YELLOW UOP, LBKA WITH ULCERATION ON BACK OF LT LEG, WITH SOME DRAINAGE. NO PAIN REPORTED. OF 0800 TODAY, POTASSIUM AT 4.4. POSSIBLE COREMAKER HELPER TOMORROW, SON WANTS TO BE NOTIFIED PRIOR TO PT BEING TAKEN DOWN TO SURGERY.
[2021-11-28 21:40] LABS: POC Glucose,Bedside 225 (70-110)
[2021-11-29] VITALS (19 sets, daily range): BP systolic 93–194; BP diastolic 55–76; PULSE 67–81; RESP 16–20; TEMP 36.5–36.9; O2SAT 69–98; BMI 41.5
--- NOTE | 2021-11-29 | IR_ITS ---
APPROVED REPORT Patient Location: Inpatient Hobbing Machine Operator: ANDREW Flaherty RT (R) PROCEDURES Left heart catheterization Left ventriculogram Selective coronary angiogram Selective engagement of left internal mammary artery to the LAD Selective engagement of the saphenous vein graft to the dominant right coronary Selective engagement of the skip graft which anastomosis to the first diagonal artery and then over to the obtuse marginal artery of the circumflex artery INDICATION Coronary artery disease, History of coronary bypass surgery, Angina pectoris Informed consent was obtained prior to the procedure. COMPLICATIONS NONE Estimated Blood Loss: LESS THAN 10 ML TECHNIQUE One percent lidocaine used to anesthetize the right groin. The right femoral artery was accessed via the Seldinger technique and a 5 Russian sheath was placed in the right femoral artery. A JL 4, JR4 catheter were used to perform left heart catheterization, left ventriculogram selective coronary angiography as well as selective engagement of the 2 vein grafts and the left internal mammary artery. At the end of the procedure the patient was transferred to the postop holding area in stable condition for sheath removal. ANGIOGRAPHIC RESULTS The left main artery Is patent The left anterior descending artery Ostially occluded The circumflex artery Gives rise to a small vessel with a proximal 90% followed by additional 90% and then occluded in the mid to distal portion. It gives off no obtuse marginal artery The right coronary artery Is dominant and subtotally occluded in the midportion The [place] ventriculogram reveals Dilated reduced ejection fraction 25% The left ventricular end-diastolic pressure 25 mmHg BEAR to LAD patent Saphenous vein graft to first diagonal arteries widely patent as is the skip portion which supplies the first obtuse marginal artery of the circumflex artery Saphenous vein graft to the posterior descending artery is widely patent IMPRESSION Severe [place] three-vessel coronary disease as described above Patent four-vessel bypass grafts as described above 1 BEAR graft 1 saphenous vein graft which function is a skip graft and one widely patent saphenous vein graft to the distal right coronary Dilated ventricle with severely reduced ejection fraction Elevated LVEDP PLAN 1. Medical management for coronary disease 2. Standard therapy for systolic heart failure which include Entresto carvedilol diuretics 3. Consideration for LifeVest prior to discharge home 4. Determine if patient is a candidate for AICD 5. LDL less than 55 to be achieved with high intensity statin Electronically signed by : Ricky Mendoza MD 11/29/2021 17:48:41
--- NOTE | 2021-11-29 04:53 | PC.NURSE ---
no issues or concerns a this time, no changes from previous assessment, VSS, pt slept most of the night, ulcer noted ENTRY LEVEL ACCOUNTANT to left posterior thigh, f/c to bsd with clear yellow urine noted, scrotal edema noted, RLE noted with mild edema pitting, pt soa lying down, 02 sats 97% on 2L pnc, lung sounds diminished, pt is alert and oriented x4.
[2021-11-29 06:35] LABS: Anion Gap 6.1 mEq/L (5-15); Blood Urea Nitrogen 19 mg/dl (9-20); Calcium 8.6 mg/dl (8.4-10.2); Carbon Dioxide 34 mmol/L (22.0-30.0); Chloride 102 mmol/L (98-107); Creatinine Clearance Estimated 58 mL/min (50-200); Estimated Glomerular Filt Rate 111 ml/min (>60); GFR (African American) 135 ML/MIN (>60); Glucose 136 mg/dl (74-100); Potassium 4.1 mmoL/L (3.5-5.1); Sodium 138 mmol/L (136-145)
--- NOTE | 2021-11-29 08:38 | SW/DCPLANNER ---
Addendum entered by Eugenia Ibrahim 12/03/21 09:41: The plan for this patient is to return to [facility] level of care. Pauly payne/ [facility] has requested a COVID swab prior to returning. Original Note: This patient currently resides at [facility] level of care. I will continue to follow up with Pauly at [facility] until patient is medically stable for discharge. Patient will require a COVID swab prior to returning.
--- NOTE | 2021-11-29 08:47 | EXP.ACUTE.PN ---
Subjective *Date: 11/29/21 *Time: 08:47 Interval history: He seems to feel better. His weight is down 6 pounds. He has less edema but there is still a lot of scrotal edema. Catheter is still in place. Medical Exam Vital signs and Labs for Last 24 Hours: Temp Pulse Resp BP Pulse Ox 97.7 F 67 19 138/66 97 11/29/21 04:00 11/29/21 04:00 11/29/21 04:00 11/29/21 04:00 11/29/21 04:00 Laboratory Results - last 24 hr 11/28/21 08:05: Troponin I < 0.01 11/28/21 11:20: POC Glucose 162 H 11/28/21 16:51: POC Glucose 198 H 11/28/21 21:32: POC Glucose 225 H 11/29/21 06:14: Sodium 138, Potassium 4.1, Chloride 102, Carbon Dioxide 34 H, Anion Gap 6.1, BUN 19, Creatinine 0.70, Estimated Creat Clear 58, Estimated GFR 111, Est GFR ( Amer) 135, Glucose 136 H, Calcium 8.6 I & O for Labs for Last 24 Hours: Intake & Output 11/26/21 11/27/21 11/28/21 11/29/21 11:59 11:59 11:59 11:59 Intake Total 466 / 466 2085 / 6 Output Total 2099 / 2099 3350 / 3350 Balance -1634 / -1634 -1264 / -1264 Weight 254 lb 4 oz 249 lb 6 oz Head: Present normocephalic Neck: Present normal inspection Respiratory: Present CTA bilaterally Cardiac: Present Reg Rate and Rhythm GI: Present soft; Absent tenderness Rectal (male): Present deferred (male): Present scrotal swelling (Perhaps less but still prominent. Catheter in place.) Extremities: Present edema (Perhaps improved.) Skin: Present wounds (Wound of the left leg is healing.) Neuro: Present alert and oriented x 3 Assessment and Plan *Assessment and plan (1) CHF (congestive heart failure): Status: Acute Category: Medical Code(s): I50.9 - Heart failure, unspecified (2) Scrotal edema: Status: Acute Category: Medical Code(s): N50.89 - Other specified disorders of the male genital organs (3) HTN (hypertension): Status: Acute Category: Medical Code(s): I10 - Essential (primary) hypertension (4) Peripheral vascular disease in diabetes mellitus: Status: Acute Category: Medical Code(s): E11.51 - Type 2 diabetes mellitus with diabetic peripheral angiopathy without gangrene (5) Hx of CABG: Status: Acute Category: Surgical Code(s): Z95.1 - Presence of aortocoronary bypass graft (6) Type 2 diabetes mellitus: Status: Acute Category: Medical Code(s): E11.9 - Type 2 diabetes mellitus without complications (7) History of left below knee amputation: Status: Chronic Category: Medical Code(s): Z89.512 - Acquired absence of left leg below knee Plan Continue present regimen. He needs to continue with ice to the scrotal area and I am not sure he received it as much as he needed it yesterday.
--- NOTE | 2021-11-29 10:21 | EXP.CARD.PN ---
Subjective Subjective Date: 11/29/21 Time: 10:23 Principal diagnosis: CHF Interval history: 71-year-old white male in bed in no acute distress. Still with some mild conversational dyspnea. Edema is improving but still with significant scrotal swelling. Plan to proceed with left heart catheterization today. Exam Data for Last 24 hours Vital signs and Labs for Last 24 Hours: Temp Pulse Resp BP Pulse Ox 98.4 F 78 18 140/66 94 L 11/29/21 08:00 11/29/21 08:00 11/29/21 08:00 11/29/21 08:00 11/29/21 08:00 Laboratory Results - last 24 hr 11/28/21 08:05: Troponin I < 0.01 11/28/21 11:20: POC Glucose 162 H 11/28/21 16:51: POC Glucose 198 H 11/28/21 21:32: POC Glucose 225 H 11/29/21 06:14: Sodium 138, Potassium 4.1, Chloride 102, Carbon Dioxide 34 H, Anion Gap 6.1, BUN 19, Creatinine 0.70, Estimated Creat Clear 58, Estimated GFR 111, Est GFR ( Amer) 135, Glucose 136 H, Calcium 8.6 11/29/21 06:14: Hemoglobin A1c 8.0 H D I & O for Last 24 hours: Intake & Output 11/26/21 11/27/21 11/28/21 11/29/21 11:59 11:59 11:59 11:59 Intake Total 466 / 466 2086 / 2086 Output Total 2099 / 2099 3350 / 3350 Balance -1634 / -1634 -1264 / -1264 Weight 254 lb 4 oz 249 lb 6 oz Constitutional Constitutional: no acute distress *Routine Respiratory Exam Respiratory: Present decreased breath sounds and diminished air movement *Routine Cardiovascular Exam Cardiovascular: Present RRR *Routine Extremities Exam Extremities: Present edema Progress Note: A&P Assessment and plan (1) CHF (congestive heart failure): Status: Acute (2) Scrotal edema: Status: Acute (3) HTN (hypertension): Status: Acute (4) Peripheral vascular disease in diabetes mellitus: Status: Acute (5) Hx of CABG: Status: Acute (6) Type 2 diabetes mellitus: Status: Acute (7) History of left below knee amputation: Status: Chronic Assessment and Plan Assessment and Plan for All Diagnoses:: 1.? Congestive heart failure with lower extremity, abdominal and scrotal edema, likely due to a combination of ischemic cardiomyopathy, mitral valve disease and possibly angina in a patient with diabetes and prior bypass surgery.? Preliminary echocardiogram result shows EF of 45% with mild to moderate mitral regurgitation.? Plan proceed with left heart catheterization today for further evaluation peer 2.? CAD/history of CABG/ischemic cardiomyopathy, continue aspirin and metoprolol and will begin Entresto therapy.? Troponin was negative. 3.? Diabetes mellitus, defer to PCP, hemoglobin A1c greater than 14 on 10/07/21 4.? Hypertension, controlled 5.? Hyperlipidemia, continue atorvastatin therapy 6.? Anemia, this has drifted down from 13.1 to 9.3 today (since his surgery in September 2021).? Continue to monitor. Further recommendations to follow pending cardiac cath results
--- NOTE | 2021-11-29 11:15 | PC.NURSE ---
Courtesy Tech Round: Assisted pt with a bed bath, and preparation for heart cath x2 assist. no other requests voiced. bed in low position and call light attached.
[2021-11-29 12:03] LABS: POC Glucose,Bedside 229 (70-110)
--- NOTE | 2021-11-29 14:22 | PC.NURSE ---
rounded on patient. educated on planned heart cath. no further questions after that. no concerns noted. encouraged him to ring out as needed. call light within reach
[2021-11-29 18:33] LABS: POC Glucose,Bedside 182 (70-110)
--- NOTE | 2021-11-29 18:40 | PC.NURSE ---
PT BACK FROM HOUSEKEEPER. FEMORAL APPROACH BUT NO STENTS RECEIVED. PT IS ALERT AND NON-DROWSY. DENIES CHEST PAIN OR PRESSURE. DSG IN PLACE TO GROIN SITE C/D/I WITH NO EVIDENCE OF HEMATOMA NOTED. DENIES N/V/D.
[2021-11-29 20:40] LABS: POC Glucose,Bedside 276 (70-110)
[2021-11-30] VITALS (9 sets, daily range): BP systolic 100–121; BP diastolic 51–57; PULSE 60–81; RESP 15–20; TEMP 36.5–36.9; O2SAT 90–97; BMI 40.0
--- NOTE | 2021-11-30 04:25 | PC.NURSE ---
NO ACUTE CHANGES SINCE PREVIOUS ASSESSMENT. PT HAS RESTED WELL THIS SHIFT. REMAINS ALERT AND ORIENTED X4. LUNG SOUNDS ARE CLEAR BILATERALLY. PT STLL HAS 2+ PITTING EDEMA TO THE RLE AND SIGNIFICANT SWELLING TO HIS SCROTUM. DRESSING IN PLACE TO RIGHT GROIN CATH SITE. DRESSING IS C/D/I. NO C/O CP, SOB, N/V/D. GLASGOW REMAINS IN PLACE AND IS DRAINING ADEQUATE AMOUNTS OF CLEAR YELLOW URINE. VSS. CALL CANSECO WITHIN REACH.
[2021-11-30 05:42] LABS: POC Glucose,Bedside 204 (70-110)
--- NOTE | 2021-11-30 09:43 | PC.NURSE ---
pt is sitting up in bed watching tv and voiced no further requests at this time
--- NOTE | 2021-11-30 11:31 | CT_ITS ---
PROCEDURE INFORMATION: Exam: CT Abdomen And Pelvis Without Contrast Exam date and time: 11/30/2021 12:04 PM Age: 71 years old Clinical indication: Other: Scrotal edema TECHNIQUE: Imaging protocol: Computed tomography of the abdomen and pelvis without contrast. Radiation optimization: All CT scans at this facility use at least one of these dose optimization techniques: automated exposure control; mA and/or kV adjustment per patient size (includes targeted exams where dose is matched to clinical indication); or iterative reconstruction. COMPARISON: CT ABDOMEN PELVIS W CON 11/28/2021 12:31 AM FINDINGS: Tubes, catheters and devices: Vega catheter Pleural spaces: Moderate to large bilateral pleural effusions. Subsegmental atelectasis. Liver: Normal. No mass. Gallbladder and bile ducts: Small amount of pericholecystic fluid with wall thickening. Pancreas: Normal. No ductal dilation. Spleen: Normal. No splenomegaly. Adrenal glands: Normal. No mass. Kidneys and ureters: Bilateral Bosniak type 1 renal cysts. Bilateral perinephric stranding. Findings nonspecific and may reflect acute versus chronic inflammatory change. Findings unchanged. Stomach and bowel: Unremarkable. No obstruction. No mucosal thickening. Appendix: No evidence of appendicitis. Intraperitoneal space: Unremarkable. No free air. Minimal fluid involving the mesentery and pericolic gutters with extension into the pelvis. Findings have slightly decreased since the previous study. Vasculature: Scattered regions of atherosclerotic vascular calcification within the abdominal aorta and common iliac arteries. Lymph nodes: Unremarkable. No enlarged lymph nodes. Urinary bladder: Unremarkable as visualized. Reproductive: Unremarkable as visualized. Bones/joints: Advanced changes of disc degeneration at L5-S1 again demonstrated. Findings stable. Soft tissues: Persistent extensive regions of subcutaneous edema. Slightly less pronounced in comparison to the previous study. IMPRESSION: 1. Persistent stranding with minimal fluid involving the mesentery and pericolic gutters with extension into the pelvis. Findings have slightly decreased 2. Persistent extensive regions of subcutaneous edema. Slightly less pronounced in comparison to the previous study. 3. No evidence of acute abnormality. 4. Bosniak type 1 renal cysts. No further workup recommended. 5. Please see above report for discussion of nonacute findings. COMMENTS: Consistent with the [place] [employer]'s Incidental Findings Committee white paper (J Am Parker Radiol 2018): Any incidental renal lesion less than 1 cm or classified as too small to characterize, or any incidental cystic renal lesion characterized as simple-appearing, is likely benign. No follow-up imaging is recommended for these lesions per consensus recommendations based on imaging criteria.
--- NOTE | 2021-11-30 11:37 | EXP.ACUTE.PN ---
Subjective *Date: 11/30/21 *Time: 11:37 Interval history: He is comfortable.His weight has declined to 240. He still has extensive scrotal edema.He has not been using an ice pack. Medical Exam Vital signs and Labs for Last 24 Hours: Temp Pulse Resp BP Pulse Ox 98.2 F 81 18 121/53 L 95 11/30/21 08:00 11/30/21 08:00 11/30/21 08:00 11/30/21 08:00 11/30/21 08:00 Laboratory Results - last 24 hr 11/29/21 11:54: POC Glucose 229 H 11/29/21 18:24: POC Glucose 182 H 11/29/21 20:32: POC Glucose 276 H 11/30/21 05:34: POC Glucose 204 H I & O for Labs for Last 24 Hours: Intake & Output 11/27/21 11/28/21 11/29/21 11/30/21 11:59 11:59 11:59 11:59 Intake Total 466 / 466 2086 / 2086 770 / 770 Output Total 2100 / 2100 4950 / 4950 4625 / 4625 Balance -1634 / -1634 -2864 / -2864 -3855 / -3855 Weight 254 lb 4 oz 249 lb 6 oz 240 lb 5 oz Head: Present normocephalic Neck: Present normal inspection Respiratory: Present CTA bilaterally Cardiac: Present Reg Rate and Rhythm GI: Present soft; Absent tenderness Extremities: Present edema (Has improved) Skin: Present wounds (Left leg healing) Neuro: Present alert and oriented x 3 Assessment and Plan *Assessment and plan (1) CHF (congestive heart failure): Status: Acute Category: Medical Code(s): I50.9 - Heart failure, unspecified (2) Scrotal edema: Status: Acute Category: Medical Code(s): N50.89 - Other specified disorders of the male genital organs (3) Urinary retention: Status: Acute Category: Medical Code(s): R33.9 - Retention of urine, unspecified (4) HTN (hypertension): Status: Acute Category: Medical Code(s): I10 - Essential (primary) hypertension (5) Cellulitis and abscess of leg: Status: Acute Category: Medical Code(s): L03.119 - Cellulitis of unspecified part of limb; L02.419 - Cutaneous abscess of limb, unspecified (6) History of left below knee amputation: Status: Chronic Category: Medical Code(s): Z89.512 - Acquired absence of left leg below knee (7) Type 2 diabetes mellitus: Status: Acute Category: Medical Code(s): E11.9 - Type 2 diabetes mellitus without complications Plan CT of abdomen and pelvis without contrast.
[2021-11-30 13:26] LABS: Chloride 98 mmol/L (98-107)
[2021-11-30 13:27] LABS: Potassium 4.1 mmoL/L (3.5-5.1); Sodium 137 mmol/L (136-145)
[2021-11-30 13:29] LABS: Alanine Aminotransferase 16 U/L (12-78); Aspartate Amino Transferase 24 U/L (17-59); Blood Urea Nitrogen 20 mg/dl (9-20); Creatinine Clearance Estimated 58 mL/min (50-200); Estimated Glomerular Filt Rate 111 ml/min (>60); GFR (African American) 135 ML/MIN (>60)
[2021-11-30 13:30] LABS: Albumin Level 3.4 g/dl (3.5-5.0); Albumin/Globulin Ratio 1.1 (1.1-1.8); Alkaline Phosphatase 148 U/L (38-126); Anion Gap 6.1 mEq/L (5-15); Bilirubin,Total 0.4 mg/dl (0.2-1.3); Calcium 8.1 mg/dl (8.4-10.2); Carbon Dioxide 37 mmol/L (22.0-30.0); Globulin 3.1 g/dL (1.3-3.2); Glucose 223 mg/dl (74-100); Total Protein,Serum 6.5 g/dl (6.3-8.2)
--- NOTE | 2021-11-30 15:15 | PC.NURSE ---
NO CHNAGES SINCE PREVIOUS ASSESSMENT. AOX4. CONTINUES ON 2LNC WITH CLEAR LUNG SOUNDS ON AUSCULTATION. +2PT EDEMA TO RLE. PEDAL PULSES PRESENT TO RLE. DRESSING TO RIGHT GROIN C/D/I NO EVIDENCE OF HEMATOMA OR BLEEDING NOTED. GLASGOW CATH IN PLACE DRAINING CLEAR YELLOW URINE. DENIES PAIN. TOLERATING DIET WELL WITH NO C/O N/V/D.
[2021-12-01] VITALS: BP 124/48; PULSE 70; PULSE 76; RESP 20; TEMP 36.6; O2SAT 91
[2021-12-01 02:12] LABS: POC Glucose,Bedside 187 (70-110)
[2021-12-01 02:12] LABS: POC Glucose,Bedside 342 (70-110)
[2021-12-01 02:12] LABS: POC Glucose,Bedside 229 (70-110)
[2021-12-01 04:00] VITALS: BP 117/61; PULSE 65; PULSE 68; RESP 18; TEMP 36.5; O2SAT 96
--- NOTE | 2021-12-01 04:24 | PC.NURSE ---
pt slept most of the night, no issues or concerns noted, f/c to bsd with clear yellow urine noted, 2+ pitting edema to RLE, pt is alert and oriented x4, VSS, no acute distress noted, VSS, telemetry reveals NSR
[2021-12-01 05:00] VITALS: BMI 39.9
[2021-12-01 07:06] LABS: POC Glucose,Bedside 138 (70-110)
[2021-12-01 08:00] VITALS: BP 127/63; PULSE 70; PULSE 76; RESP 16; TEMP 36.6; O2SAT 91; O2SAT 96
[2021-12-01 12:00] VITALS: BP 123/54; PULSE 70; RESP 20; TEMP 36.6; O2SAT 97
[2021-12-01 12:07] LABS: POC Glucose,Bedside 218 (70-110)
--- NOTE | 2021-12-01 13:25 | EXP.ACUTE.PN ---
Subjective *Date: 12/01/21 *Time: 13:30 Interval history: He remains clinically stable. He is not dyspneic. His swelling may be a little bit better he states. The CT scan repeat was not very revealing. He does still shows some pleural effusion bilaterally.His weight is unchangedSome family members present. Medical Exam Vital signs and Labs for Last 24 Hours: Temp Pulse Resp BP Pulse Ox FiO2 97.9 F 70 20 123/54 L 97 28 12/01/21 12:00 12/01/21 12:00 12/01/21 12:00 12/01/21 12:00 12/01/21 12:00 11/30/21 18:29 Laboratory Results - last 24 hr 11/30/21 12:21: POC Glucose 229 H 11/30/21 12:45: Sodium 137, Potassium 4.1, Chloride 98, Carbon Dioxide 37 H, Anion Gap 6.1, BUN 20, Creatinine 0.70, Estimated Creat Clear 58, Estimated GFR 111, Est GFR ( Amer) 135, Glucose 223 H, Calcium 8.1 L, Total Bilirubin 0.4, AST 24 D, ALT 16, Alkaline Phosphatase 148 H, Total Protein 6.5, Albumin 3.4 L, Globulin 3.1, Albumin/Globulin Ratio 1.1 11/30/21 16:34: POC Glucose 342 H* 11/30/21 20:32: POC Glucose 187 H 12/01/21 06:58: POC Glucose 138 H 12/01/21 11:57: POC Glucose 218 H I & O for Labs for Last 24 Hours: Intake & Output 11/29/21 11/30/21 12/01/21 12/02/21 11:59 11:59 11:59 11:59 Intake Total 2086 / 2086 1118 / 1118 840 / 840 600 / 600 Output Total 4950 / 4950 4625 / 4625 3340 / 4740 1400 / 1400 Balance -2864 / -2864 -3507 / -3507 -2500 / -3900 -800 / -800 Weight 249 lb 6 oz 240 lb 5 oz 240 lb Head: Present normocephalic Neck: Present normal inspection Respiratory: Present decreased breath sounds (At the bases.) Cardiac: Present Reg Rate and Rhythm GI: Present soft; Absent tenderness (male): Present scrotal swelling (He still appears to be quite swollen.) Comment:: No real change. BKA left Skin: Present intact and wounds (Of leg healing) Neuro: Present alert and oriented x 3 Assessment and Plan *Assessment and plan (1) CHF (congestive heart failure): Status: Acute Category: Medical Code(s): I50.9 - Heart failure, unspecified (2) Scrotal edema: Status: Acute Category: Medical Code(s): N50.89 - Other specified disorders of the male genital organs (3) Urinary retention: Status: Acute Category: Medical Code(s): R33.9 - Retention of urine, unspecified (4) Peripheral vascular disease in diabetes mellitus: Status: Acute Category: Medical Code(s): E11.51 - Type 2 diabetes mellitus with diabetic peripheral angiopathy without gangrene (5) Hx of CABG: Status: Acute Category: Surgical Code(s): Z95.1 - Presence of aortocoronary bypass graft (6) History of left below knee amputation: Status: Chronic Category: Medical Code(s): Z89.512 - Acquired absence of left leg below knee (7) Type 2 diabetes mellitus: Status: Acute Category: Medical Code(s): E11.9 - Type 2 diabetes mellitus without complications (8) HTN (hypertension): Status: Acute Category: Medical Code(s): I10 - Essential (primary) hypertension Plan Additional 20 mg of Lasix today. IV.Ultrasound of scrotum tomorrow.
--- NOTE | 2021-12-01 15:31 | PC.NURSE ---
NO ACUTE CHANGES SINCE PREVIOUS ASSESSMENT. AOX4, ABLE TO MAKE NEEDS KNOWN TO STAFF. 2LNC FOR O2 SUPPORT. 2+ PITTING EDEMA TO RLE. GLASGOW CATH IN PLACE DRAINING CLEAR YELLOW URINE.
[2021-12-01 16:00] VITALS: BP 132/62; PULSE 60; PULSE 74; RESP 16; TEMP 36.7; O2SAT 96
[2021-12-01 17:08] LABS: POC Glucose,Bedside 220 (70-110)
[2021-12-01 20:00] VITALS: BP 145/64; PULSE 75; PULSE 78; RESP 20; TEMP 36.5; O2SAT 96
[2021-12-02] VITALS (8 sets, daily range): BP systolic 102–131; BP diastolic 52–59; PULSE 60–81; RESP 16–20; TEMP 36.4–36.9; O2SAT 94–100; BMI 39.0
[2021-12-02 06:40] LABS: POC Glucose,Bedside 147 (70-110)
--- NOTE | 2021-12-02 06:54 | PC.NURSE ---
Addendum entered by Aida Payne RN 12/02/21 07:03: telemetry reveals NSR Original Note: no changes from previous assessment, pt slept well through the night, RLE pitting edema 2+; f/c to bsd with clear yellow urine noted, pt is alert and oriented x4, no acute distress noted, 02 at 2L with sats 95%; lung sounds diminished, no other issues noted at this time.
--- NOTE | 2021-12-02 08:00 | US_ITS ---
FINAL REPORT CLINICAL HISTORY: scrotal swelling FINDINGS: Technique: Ultrasound images of the testicles were obtained. Findings: The right testicle measures up to 5.2 cm. The left testicle measures up to 5.2 cm. No intratesticular mass identified. Arterial flow is identified bilaterally. There is marked scrotal thickening and scrotal edema without a well-defined focal fluid collection. The epididymi are hyperechoic of uncertain significance. IMPRESSION: No intratesticular mass or evidence of torsion. Hyperechoic epididymi of uncertain significance. Marked scrotal thickening and scrotal edema without a well-defined focal fluid collection. Reviewed, Interpreted and Dictated by Ramone Chris III, MD Transcribed by Per Tiwari Authenticated and [facility]
--- NOTE | 2021-12-02 09:12 | EXP.ACUTE.PN ---
Subjective *Date: 12/02/21 *Time: 09:12 Interval history: Clinically he is basically unchanged. He had the ultrasound of the scrotum this morning. I do not have that report back yet. His scrotum looks more discolored, darker, ecchymotic. Medical Exam Vital signs and Labs for Last 24 Hours: Temp Pulse Resp BP Pulse Ox FiO2 97.5 F L 81 16 117/55 L 98 28 12/02/21 08:00 12/02/21 08:00 12/02/21 08:00 12/02/21 08:00 12/02/21 08:00 12/01/21 18:53 Laboratory Results - last 24 hr 12/01/21 11:57: POC Glucose 218 H 12/01/21 16:52: POC Glucose 220 H 12/02/21 06:32: POC Glucose 147 H I & O for Labs for Last 24 Hours: Intake & Output 11/29/21 11/30/21 12/01/21 12/02/21 11:59 11:59 11:59 11:59 Intake Total 2086 / 2086 1118 / 1118 840 / 840 1560 / 1560 Output Total 4950 / 4950 4625 / 4625 3340 / 4740 4500 / 4500 Balance -2864 / -2864 -3507 / -3507 -2500 / -3900 -2940 / -2940 Weight 249 lb 6 oz 240 lb 5 oz 240 lb 234 lb 9 oz Head: Present normocephalic Neck: Present normal inspection Respiratory: Present CTA bilaterally and diminished air movement (At the bases) Cardiac: Present Reg Rate and Rhythm GI: Present soft; Absent tenderness (male): Present scrotal swelling (With some discoloration today. Vega catheter still in place.) Extremities: Absent edema Skin: Present intact (Except for the scrotal area.) Neuro: Present alert and oriented x 3 Assessment and Plan *Assessment and plan (1) CHF (congestive heart failure): Status: Acute Category: Medical Code(s): I50.9 - Heart failure, unspecified (2) Scrotal edema: Status: Acute Category: Medical Code(s): N50.89 - Other specified disorders of the male genital organs (3) Urinary retention: Status: Acute Category: Medical Code(s): R33.9 - Retention of urine, unspecified (4) HTN (hypertension): Status: Acute Category: Medical Code(s): I10 - Essential (primary) hypertension (5) Hx of CABG: Status: Acute Category: Surgical Code(s): Z95.1 - Presence of aortocoronary bypass graft (6) Type 2 diabetes mellitus: Status: Acute Category: Medical Code(s): E11.9 - Type 2 diabetes mellitus without complications (7) History of left below knee amputation: Status: Chronic Category: Medical Code(s): Z89.512 - Acquired absence of left leg below knee Plan Await ultrasound report. Could there be vascular compromise?
--- NOTE | 2021-12-02 11:02 | EXP.CARD.PN ---
Subjective Subjective Date: 12/02/21 Time: 10:00 Principal diagnosis: CHF Interval history: Had diuresis this is a 71-year-old white gentleman who was admitted to the hospital with an acute diastolic CHF exacerbation. The patient had lower extremity edema as well as scrotal edema. He underwent left cardiac catheterization which showed patent CAD/CABG and no percutaneous intervention was required. The LV gram did estimate his ejection fraction at 25% but his echocardiogram estimated his ejection fraction at 55%. No life vest is indicated as the patient's EF is 55%. This morning he states that his shortness of breath has significantly improved. His lower extremity edema has improved as well. The patient is still with scrotal edema and discoloration. He denies any fever, chills, nausea, vomiting, diarrhea. Exam Data for Last 24 hours Vital signs and Labs for Last 24 Hours: Temp Pulse Resp BP Pulse Ox FiO2 97.5 F L 81 16 117/55 L 98 28 12/02/21 08:00 12/02/21 08:00 12/02/21 08:00 12/02/21 08:00 12/02/21 08:00 12/01/21 18:53 Laboratory Results - last 24 hr 12/01/21 11:57: POC Glucose 218 H 12/01/21 16:52: POC Glucose 220 H 12/02/21 06:32: POC Glucose 147 H I & O for Last 24 hours: Intake & Output 11/29/21 11/30/21 12/01/21 12/02/21 23:59 23:59 23:59 23:59 Intake Total 1644 / 1644 770 / 890 1920 / 2040 240 / 240 Output Total 5850 / 6675 2725 / 3425 5590 / 6140 2550 / 2550 Balance -4206 / -5031 -1955 / -2535 -3670 / -4100 -2310 / -2310 Weight 249 lb 6 oz 240 lb 5 oz 240 lb 234 lb 9 oz Constitutional Constitutional: no acute distress and average body habitus *Routine HEENT Exam Head: Present normocephalic and atraumatic ENT: Present mucous membranes moist *Routine Neck Exam Neck: Present supple, full ROM and normal carotid upstroke; Absent JVD, carotid bruit or lymphadenopathy *Routine Respiratory Exam Respiratory: Present CTA bilaterally, normal respiratory effort, able to speak in complete sentences and symmetric chest movement *Routine Cardiovascular Exam Cardiovascular: Present RRR, Normal S1 and Normal S2; Absent murmur or gallop *Routine Abdominal Exam Abdominal: Present soft and normoactive bowel sounds; Absent tenderness, distended or organomegaly *Routine Extremities Exam Extremities: Present full ROM, pulses intact and normal capillary refill; Absent cyanosis, clubbing or edema *Routine Skin Exam Skin: Present intact and warm; Absent erythema *Routine Neurological Exam Neurological: Present alert, oriented X3 and CN II-XII intact; Absent sensory deficit or motor deficit Routine Psychiatric Exam Psychiatric: Present normal affect Progress Note: A&P Assessment and plan (1) CHF (congestive heart failure): Status: Acute (2) Scrotal edema: Status: Acute (3) CAD (coronary artery disease) of artery bypass graft: Status: Acute (4) Urinary retention: Status: Acute (5) HTN (hypertension): Status: Acute (6) Hx of CABG: Status: Acute (7) Type 2 diabetes mellitus: Status: Acute (8) History of left below knee amputation: Status: Chronic (9) Hyperlipidemia: Status: Acute Assessment and Plan Assessment and Plan for All Diagnoses:: Plan: 1. The patient was admitted to the hospital with congestive heart failure. He had lower extremity edema, abdominal edema and scrotal edema. The patient's lower extremity edema has improved as well as his shortness of breath. He is still getting IV diuresis. We will continue this at this time. 2. The patient does have an ejection fraction of 55% on echocardiogram and 25% on LV gram. Dr. Mendoza states that the patient's LV gram was not that accurate. His ejection fraction is 55% and no LifeVest is indicated at this time. 3. The patient does have diastolic congestive heart failure. He is on a beta-nitin and Entresto as well as Lasix. 4. The patient does have scrotal edema with discoloration. This continue
[2021-12-02 11:42] LABS: POC Glucose,Bedside 273 (70-110)
--- NOTE | 2021-12-02 12:33 | PC.NURSE ---
rounded on patient. patient sitting up in bed. nunn in place. call light within reach. no concerns or questions at this time. no needs voiced. encouraged him to ring out as needed.
[2021-12-02 17:01] LABS: POC Glucose,Bedside 193 (70-110)
--- NOTE | 2021-12-02 17:48 | PC.NURSE ---
PT IS RESTING IN BED. ALERT AND ORIENTED X4. EATING AND DRINKING WELL. DIURESED OVER 3 L THIS SHIFT. LUNG SOUNDS DIMINISHED. ABDOMEN SOFT/NON TENDER WITH ACTIVE BOWEL SOUNDS. LBKA. ULCER NOTED TO THE BACK OF THE LEFT KNEE. DRESSING APPLIED. WILL CONTINUE TO MONITOR.
[2021-12-03] VITALS: BP 146/67; PULSE 80; PULSE 86; RESP 16; TEMP 36.8; O2SAT 99
[2021-12-03 04:00] VITALS: BP 102/48; PULSE 70; PULSE 77; RESP 16; TEMP 36.6; O2SAT 98
[2021-12-03 05:00] VITALS: BMI 42.3
[2021-12-03 05:34] LABS: POC Glucose,Bedside 229 (70-110)
[2021-12-03 06:43] LABS: Basophils # 0.1 K/mm3 (0-0.2); Basophils % 1.2 % (0.1-2.0); Eosinophils # 0.4 K/mm3 (0.0-0.4); Eosinophils % 6.1 % (0.1-12.0); Hematocrit 32.9 % (42.0-52.0); Lymphocytes # 1.5 K/mm3 (0.7-4.5); Lymphocytes % 21.3 % (10-50); Mean Corpuscular HGB Conc 30.4 g/dL (31.8-35.4); Mean Corpuscular Hemoglobin 23.7 pg (27.0-31.2); Monocytes # 0.6 K/mm3 (0.1-1.0); Monocytes % 9.2 % (1.7-9.3); Neutrophils # 4.3 K/mm3 (1.8-7.8); Neutrophils % 62.2 % (37.0-80.0); Platelet Count 294 K/mm3 (142-424); Red Blood Count 4.22 M/mm3 (4.60-6.20); Red Cell Distribution Width 17.5 % (11.5-17.5); White Blood Count 6.9 K/mm3 (4.8-10.8)
[2021-12-03 06:49] LABS: Alanine Aminotransferase 16 U/L (12-78); Albumin Level 3.2 g/dl (3.5-5.0); Alkaline Phosphatase 134 U/L (38-126); Aspartate Amino Transferase 21 U/L (17-59); Bilirubin,Direct 0.1 mg/dl (0.0-0.4); Bilirubin,Indirect 0.2 mg/dL (0.0-0.9); Bilirubin,Total 0.3 mg/dl (0.2-1.3); Bilirubin,Unconjugated 0.2 mg/dL (0.0-1.1); Blood Urea Nitrogen 25 mg/dl (9-20); Calcium 8.4 mg/dl (8.4-10.2); Chloride 90 mmol/L (98-107); Chol/HDL Ratio 2.1 (1-3.5); Cholesterol 95 mg/dl (140-200); Creatinine Clearance Estimated 58 mL/min (50-200); Estimated Glomerular Filt Rate 83 ml/min (>60); GFR (African American) 101 ML/MIN (>60); Glucose 139 mg/dl (74-100); HDL Cholesterol 45 mg/dl (40-60); Potassium 3.6 mmoL/L (3.5-5.1); Sodium 137 mmol/L (136-145); Total Protein,Serum 6.2 g/dl (6.3-8.2); Triglycerides 50 mg/dl (30-150); VLDL Cholesterol 10 mg/dL (0-40)
[2021-12-03 06:56] LABS: Anion Gap 13.6 mEq/L (5-15); Carbon Dioxide 37 mmol/L (22.0-30.0)
[2021-12-03 07:09] LABS: Direct LDL Cholesterol < 30.00 mg/dL (100-129)
[2021-12-03 08:00] VITALS: BP 126/58; PULSE 76; PULSE 80; RESP 16; TEMP 36.8; O2SAT 98
--- NOTE | 2021-12-03 08:33 | EXP.PN ---
Subjective *Date: 12/03/21 *Time: 08:43 Interval history: patient states he is doing okay. He denies pain. He denies shortness of breath. He is eating well. He has not been out of bed. He continues with a Vega catheter to bedside drainage. Patient continues to diurese although weight has increased. cholesterol profile with LDL less than 30. Blood sugars remain elevated 12/02/2021 US of scrotum IMPRESSION: No intratesticular mass or evidence of torsion.? Hyperechoic epididymi of uncertain significance.? ? Marked scrotal thickening and scrotal edema without a well-defined focal fluid collection. Exam Data for Last 24 hours Vital signs and Labs for Last 24 Hours: Temp Pulse Resp BP Pulse Ox FiO2 98.2 F 76 16 126/58 L 98 28 12/03/21 08:00 12/03/21 08:00 12/03/21 08:00 12/03/21 08:00 12/03/21 08:00 12/01/21 18:53 Laboratory Results - last 24 hr 12/02/21 11:26: POC Glucose 273 H 12/02/21 16:53: POC Glucose 193 H 12/02/21 21:38: POC Glucose 229 H 12/03/21 06:28: WBC 6.9, RBC 4.22 L, Hgb 10.0 L, Hct 32.9 L, MCV 78.0 L, MCH 23.7 L, MCHC 30.4 L, RDW 17.5, Plt Count 294, MPV 9.0, Neut % (Auto) 62.2, Lymph % (Auto) 21.3, [place] % (Auto) 9.2, Eos % (Auto) 6.1, Baso % (Auto) 1.2, Neut # (Auto) 4.3, Lymph # (Auto) 1.5, [place] # (Auto) 0.6, Eos # (Auto) 0.4, Baso # (Auto) 0.1 12/03/21 06:28: Sodium 137, Potassium 3.6, Chloride 90 L, Carbon Dioxide 37 H, Anion Gap 13.6, BUN 25 H, Creatinine 0.90 D, Estimated Creat Clear 58, Estimated GFR 83, Est GFR ( Amer) 101 D, Glucose 139 H, Calcium 8.4, Total Bilirubin 0.3, Direct Bilirubin 0.1, Conjugated Bilirubin 0.0, Indirect Bilirubin 0.2, Unconjugated Bilirubin 0.2, AST 21, ALT 16, Alkaline Phosphatase 134 H, Total Protein 6.2 L, Albumin 3.2 L, Triglycerides 50, Cholesterol 95 L, LDL Cholesterol Direct < 30.00 L, VLDL Cholesterol 10, HDL Cholesterol 45, Cholesterol/HDL Ratio 2.1 I & O for Last 24 hours: Intake & Output 11/30/21 12/01/21 12/02/21 12/03/21 11:59 11:59 11:59 11:59 Intake Total 1118 / 1118 840 / 840 1560 / 1560 600 / 600 Output Total 4625 / 4625 3340 / 3340 6300 / 6300 5300 / 5300 Balance -3507 / -3507 -2500 / -2500 -4740 / -4740 -4700 / -4700 Weight 240 lb 5 oz 240 lb 234 lb 9 oz 254 lb 6.4 oz Constitutional Constitutional: no acute distress *Routine Respiratory Exam Respiratory: Present crackles ( Fine bibasilar crackles posteriorly) *Routine Cardiovascular Exam Cardiovascular: Present RRR *Routine Abdominal Exam Abdominal: Present soft and normoactive bowel sounds; Absent tenderness *Routine Exam Patient deferred: scrotal exam ( Remains edematous) *Routine Extremities Exam Extremities: Present edema ( right lower leg with some edema.) Comments: Left popliteal dressing is clean and dry. *Routine Neurological Exam Neurological: Present alert and oriented X3 Assessment and Plan *Assessment and plan (1) Hyperlipidemia: Status: Acute Category: Medical Code(s): E78.5 - Hyperlipidemia, unspecified (2) CAD (coronary artery disease) of artery bypass graft: Status: Acute Category: Medical Code(s): I25.810 - Atherosclerosis of coronary artery bypass graft(s) without angina pectoris (3) Hyperlipidemia associated with type 2 diabetes mellitus: Status: Acute Category: Medical Code(s): E11.69 - Type 2 diabetes mellitus with other specified complication; E78.5 - Hyperlipidemia, unspecified (4) HTN (hypertension): Status: Acute Category: Medical Code(s): I10 - Essential (primary) hypertension (5) Urinary retention: Status: Acute Category: Medical Code(s): R33.9 - Retention of urine, unspecified (6) Scrotal edema: Status: Acute Category: Medical Code(s): N50.89 - Other specified disorders of the male genital organs (7) CHF (congestive heart failure): Status: Acute Category: Medical Code(s): I50.9 - Heart
--- NOTE | 2021-12-03 09:39 | EXP.DC.SUM ---
General Admission date:: 11/28/21 Discharge date: 12/03/21 HPI HPI HPI: Mr. Vergara is a 71-year-old male who is presently at [facility] for wound care and rehab for a left leg wound. He has a left BKA. He had been on vancomycin and he stated this was discontinued and his PICC line was removed on Thursday by Dr. Arenas. He stated he was not sure why he was in the hospital today. He became more short of breath and stated he was transported to the ER. According to the ER note, he had swelling of his scrotum, penis, and lower abdomen for a few days and had been unable to void. He was seen in the emergency room and did have testicular swelling and urinary retention. A catheter was placed and he had good output. His BNP was found to be elevated and his potassium was elevated as well. He was admitted and given IV Lasix. Cardiology was consulted. Hospital Course Hospital Course Hospital Course: On admission catheter was placed. Diuresis was initiated. Cardiology was consulted. Potassium had normalized. Cardiology documented congestive heart failure with lower extremity, abdominal and scrotal edema likely due to combination of ischemic cardiomyopathy, mitral valve disease, and possible angina in a patient with diabetes and prior bypass surgery. Concern was for atypical or silent angina due to longstanding diabetes. IV diuretics were continued with plans for left cardiac cath. Patient had a cardiac cath on 11/29/2021 with the following impression: MPRESSION Severe [place] three-vessel coronary disease as described above Patent four-vessel bypass grafts as described above 1 BEAR graft 1 saphenous vein graft which function is a skip graft and one widely patent saphenous vein graft to the distal right coronary Dilated ventricle with severely reduced ejection fraction Elevated LVEDP Cardiology plan as follows: PLAN 1. Medical management for coronary disease 2. Standard therapy for systolic heart failure which include Entresto carvedilol diuretics 3. Consideration for LifeVest prior to discharge home 4. Determine if patient is a candidate for AICD 5. LDL less than 55 to be achieved with high intensity statin With diuresis patient's weight did decline. He continued with extensive scrotal edema. He was not dyspneic. Repeat CT scan of the abdomen/pelvis was not very revealing. He still showed some pleural effusion. He received an extra dose of Lasix. Dr. Reji hwang did evaluate the patient and his scrotum. He felt the edema was not vascular in nature. ANA was canceled. He felt that the edema and discoloration were from volume overload. Lasix was increased to 80 mg twice daily for additional diuresis. On 12/03/2021 excellent diuresis was noted. He continued to deny any chest pain or shortness of breath. He was eating well. He continued with a Vega catheter bedside drainage. Blood sugars were addressed by sliding scale insulin and Levemir was increased to 18 units. Potassium was normal at 3.6 and kidney function was stable. On this date he was felt stable to be discharged back to [facility] for ongoing rehab. Diuresis was to continue. See med list for medications. Follow-up at [place] by physician, Dr. Chou. Vega catheter will be removed for trial void. See data for lab and other test results. Exam Data for Last 24 hours Vital signs and Labs for Last 24 Hours: Temp Pulse Resp BP Pulse Ox FiO2 98.2 F 76 16 126/58 L 98 28 12/03/21 08:00 12/03/21 08:00 12/03/21 08:00 12/03/21 08:00 12/03/21 08:00 12/01/21 18:53 Laboratory Results - last 24 hr 12/02/21 11:26: POC Glucose 273 H 12/02/21 16:53: POC Glucose 193 H 12/02/21 21:38: POC Glucose 229 H 12/03/21 06:28: WBC 6.9, RBC 4.22 L, Hgb 10.0 L, Hct 32.9 L, MCV 78.0 L, MCH 23.7 L, MCHC 30.4 L, RDW 17.5, Plt Count 294, MPV 9.0, Neut % (Auto) 62.2, Lymph % (Auto) 21.3, [place] % (Auto) 9.2, Eos % (Auto) 6.1, Baso % (Auto) 1
[2021-12-03 09:58] LABS: Coronavirus 19, PCR Not Detected (NotDetected); Influenza A, PCR Not Detected (NotDetected); Influenza B, PCR Not Detected (NotDetected)
--- NOTE | 2021-12-03 10:04 | EXP.CARD.PN ---
Subjective Subjective Date: 12/03/21 Time: 10:12 Principal diagnosis: CHF Interval history: This is a 71-year-old white gentleman who was admitted to the hospital with an acute diastolic CHF exacerbation. The patient had lower extremity edema as well as scrotal edema and shortness of breath. He underwent left cardiac catheterization which showed patent CAD/CABG and no percutaneous intervention was required. The patient's ejection fraction is estimated at 55% by echocardiogram. No LifeVest is indicated as the LV gram underestimated his ejection fraction. This morning he denies any shortness of breath. He states that his leg edema has resolved. He states his scrotal edema has significantly improved. He denies any fever, chills, nausea, vomiting or diarrhea. He denies any chest pain or pressure. Exam Data for Last 24 hours Vital signs and Labs for Last 24 Hours: Temp Pulse Resp BP Pulse Ox FiO2 98.2 F 76 16 126/58 L 98 28 12/03/21 08:00 12/03/21 08:00 12/03/21 08:00 12/03/21 08:00 12/03/21 08:00 12/01/21 18:53 Laboratory Results - last 24 hr 12/02/21 11:26: POC Glucose 273 H 12/02/21 16:53: POC Glucose 193 H 12/02/21 21:38: POC Glucose 229 H 12/03/21 06:28: WBC 6.9, RBC 4.22 L, Hgb 10.0 L, Hct 32.9 L, MCV 78.0 L, MCH 23.7 L, MCHC 30.4 L, RDW 17.5, Plt Count 294, MPV 9.0, Neut % (Auto) 62.2, Lymph % (Auto) 21.3, [place] % (Auto) 9.2, Eos % (Auto) 6.1, Baso % (Auto) 1.2, Neut # (Auto) 4.3, Lymph # (Auto) 1.5, [place] # (Auto) 0.6, Eos # (Auto) 0.4, Baso # (Auto) 0.1 12/03/21 06:28: Sodium 137, Potassium 3.6, Chloride 90 L, Carbon Dioxide 37 H, Anion Gap 13.6, BUN 25 H, Creatinine 0.90 D, Estimated Creat Clear 58, Estimated GFR 83, Est GFR ( Amer) 101 D, Glucose 139 H, Calcium 8.4, Total Bilirubin 0.3, Direct Bilirubin 0.1, Conjugated Bilirubin 0.0, Indirect Bilirubin 0.2, Unconjugated Bilirubin 0.2, AST 21, ALT 16, Alkaline Phosphatase 134 H, Total Protein 6.2 L, Albumin 3.2 L, Triglycerides 50, Cholesterol 95 L, LDL Cholesterol Direct < 30.00 L, VLDL Cholesterol 10, HDL Cholesterol 45, Cholesterol/HDL Ratio 2.1 I & O for Last 24 hours: Intake & Output 11/30/21 12/01/21 12/02/21 12/03/21 23:59 23:59 23:59 23:59 Intake Total 770 / 890 1920 / 2040 840 / 840 480 / 480 Output Total 2725 / 3425 5590 / 6140 6050 / 7850 1800 / 1800 Balance -1955 / -2535 -3670 / -4100 -5210 / -7010 -1320 / -1320 Weight 240 lb 5 oz 240 lb 234 lb 9 oz 254 lb 6.4 oz Constitutional Constitutional: no acute distress and average body habitus *Routine HEENT Exam Head: Present normocephalic and atraumatic ENT: Present mucous membranes moist *Routine Neck Exam Neck: Present supple, full ROM and normal carotid upstroke; Absent JVD, carotid bruit or lymphadenopathy *Routine Respiratory Exam Respiratory: Present CTA bilaterally, normal respiratory effort, able to speak in complete sentences and symmetric chest movement *Routine Cardiovascular Exam Cardiovascular: Present RRR, Normal S1 and Normal S2; Absent murmur or gallop *Routine Abdominal Exam Abdominal: Present soft and normoactive bowel sounds; Absent tenderness, distended or organomegaly *Routine Exam Patient deferred: scrotal exam *Routine Extremities Exam Extremities: Present full ROM, pulses intact, normal capillary refill and amputation (Left below-knee amputation); Absent cyanosis, clubbing or edema *Routine Skin Exam Skin: Present intact and warm; Absent erythema *Routine Neurological Exam Neurological: Present alert, oriented X3 and CN II-XII intact; Absent sensory deficit or motor deficit Routine Psychiatric Exam Psychiatric: Present normal affect Progress Note: A&P Assessment and plan (1) CHF (congestive heart failure): Status: Acute (2) Scrotal edema: Status: Acute (3) CAD (coronary artery disease) of artery bypass graft: Status: Acute (4) Hyperlipidemia: Status: Acute (5) HTN (hypertension): Status: Acute (6) Urinary retention:
[2021-12-03 11:29] LABS: POC Glucose,Bedside 274 (70-110)
[2021-12-03 11:59] VITALS: BP 119/54; PULSE 75; RESP 16; TEMP 36.3; O2SAT 94
[2021-12-03 12:00] VITALS: PULSE 80
--- NOTE | 2021-12-03 14:02 | PC.NURSE ---
called and spoke with dr callahan office about patient discharge. it was noted in cardiologies note that they recommended also sending lasix 40mg daily and that was not done. also intermediate stated that the discharge summary meds and med rec meds did not match and could not take report. relayed this to them as well. they stated they would get message to md and have him call back.
[2021-12-03 16:00] VITALS: BP 139/73; PULSE 76; PULSE 81; RESP 16; TEMP 37; O2SAT 93
--- NOTE | 2021-12-03 16:24 | EXP.DC.SUM ---
General Admission date:: 11/28/21 HPI HPI HPI: Mr. Vergara is a 71-year-old male who is presently at [facility] for wound care and rehab for a left leg wound. He has a left BKA. He had been on vancomycin and he stated this was discontinued and his PICC line was removed on Thursday by Dr. Arenas. He stated he was not sure why he was in the hospital today. He became more short of breath and stated he was transported to the ER. According to the ER note, he had swelling of his scrotum, penis, and lower abdomen for a few days and had been unable to void. He was seen in the emergency room and did have testicular swelling and urinary retention. A catheter was placed and he had good output. His BNP was found to be elevated and his potassium was elevated as well. He was admitted and given IV Lasix. Cardiology was consulted. Exam Data for Last 24 hours Vital signs and Labs for Last 24 Hours: Temp Pulse Resp BP Pulse Ox FiO2 97.3 F L 80 16 119/54 L 94 L 28 12/03/21 11:59 12/03/21 12:00 12/03/21 11:59 12/03/21 11:59 12/03/21 11:59 12/01/21 18:53 Laboratory Results - last 24 hr 12/02/21 16:53: POC Glucose 193 H 12/02/21 21:38: POC Glucose 229 H 12/03/21 06:28: WBC 6.9, RBC 4.22 L, Hgb 10.0 L, Hct 32.9 L, MCV 78.0 L, MCH 23.7 L, MCHC 30.4 L, RDW 17.5, Plt Count 294, MPV 9.0, Neut % (Auto) 62.2, Lymph % (Auto) 21.3, [place] % (Auto) 9.2, Eos % (Auto) 6.1, Baso % (Auto) 1.2, Neut # (Auto) 4.3, Lymph # (Auto) 1.5, [place] # (Auto) 0.6, Eos # (Auto) 0.4, Baso # (Auto) 0.1 12/03/21 06:28: Sodium 137, Potassium 3.6, Chloride 90 L, Carbon Dioxide 37 H, Anion Gap 13.6, BUN 25 H, Creatinine 0.90 D, Estimated Creat Clear 58, Estimated GFR 83, Est GFR ( Amer) 101 D, Glucose 139 H, Calcium 8.4, Total Bilirubin 0.3, Direct Bilirubin 0.1, Conjugated Bilirubin 0.0, Indirect Bilirubin 0.2, Unconjugated Bilirubin 0.2, AST 21, ALT 16, Alkaline Phosphatase 134 H, Total Protein 6.2 L, Albumin 3.2 L, Triglycerides 50, Cholesterol 95 L, LDL Cholesterol Direct < 30.00 L, VLDL Cholesterol 10, HDL Cholesterol 45, Cholesterol/HDL Ratio 2.1 12/03/21 09:53: SARS-CoV-2 (PCR) Not detected, Influenza A Untype (PCR) Not detected, Influenza Type B (PCR) Not detected 12/03/21 11:21: POC Glucose 274 H I & O for Last 24 hours: Intake & Output 12/01/21 12/02/21 12/03/21 12/04/21 11:59 11:59 11:59 11:59 Intake Total 840 / 840 1560 / 1560 1080 / 1080 360 / 360 Output Total 3340 / 3340 6300 / 6300 5300 / 5300 2700 / 2700 Balance -2500 / -2500 -4740 / -4740 -4220 / -4220 -2340 / -2340 Weight 240 lb 234 lb 9 oz 254 lb 6.4 oz Results Data Completed and Pending Labs on day of discharge: Labs from last 24 hours 12/03/21 12/03/21 12/03/21 11:21 09:53 06:28 WBC RBC Hgb Hct MCV MCH MCHC RDW Plt Count MPV Neut % (Auto) Lymph % (Auto) [place] % (Auto) Eos % (Auto) Baso % (Auto) Neut # (Auto) Lymph # (Auto) [place] # (Auto) Eos # (Auto) Baso # (Auto) Sodium 137 Potassium 3.6 Chloride 90 L Carbon Dioxide 37 H Anion Gap 13.6 BUN 25 H Creatinine 0.90 D Estimated Creat Clear 58 Estimated GFR 83 Est GFR ( Amer) 101 D Glucose 139 H POC Glucose 274 H Calcium 8.4 Total Bilirubin 0.3 Direct Bilirubin 0.1 Conjugated Bilirubin 0.0 Indirect Bilirubin 0.2 Unconjugated Bilirubin 0.2 AST 21 ALT 16 Alkaline Phosphatase 134 H Total Protein 6.2 L Albumin 3.2 L Triglycerides 50 Cholesterol 95 L LDL Cholesterol Direct < 30.00 L VLDL Cholesterol 10 HDL Cholesterol 45 Cholesterol/HDL Ratio 2.1 SARS-CoV-2 (PCR) Not detected Influenza A Untype (PCR) Not detected Influenza Type B (PCR) Not detected 12/03/21 12/02/21 12/02/21 06:28 21:38 16:53 WBC 6.9 RBC 4.22 L Hgb 10.0 L Hct 32.9 L MCV 78.0 L MCH 23.7 L MCHC 30.4 L RDW 17.5 Plt Count
--- NOTE | 2021-12-03 17:31 | PC.NURSE ---
Have called [facility] several times this afternoon. Stated they are feeding supper at this time and someone will call back when finished for report on pt.
[2021-12-04 03:26] LABS: POC Glucose,Bedside 247 (70-110)
== END 2021-12-03 18:30 ==
LOC: ER 23:03 → 2ND 11-28 02:23
PROVIDERS: Internal Medicine; Nurse Practitioner Family; Physician Assistant; Admitting Provider Family Medicine; Emergency Provider Emergency Medicine; PCP Family Medicine; Visit Provider Family Medicine
DX: I25.810 Atherosclerosis of coronary artery bypass graft(s) without angina pectoris (principal); I50.33 Acute on chronic diastolic (congestive) heart failure; I11.0 Hypertensive heart disease with heart failure; I25.10 Atherosclerotic heart disease of native coronary artery without angina pectoris; E87.5 Hyperkalemia; E78.5 Hyperlipidemia, unspecified; R33.9 Retention of urine, unspecified; D64.9 Anemia, unspecified; Z79.4 Long term (current) use of insulin; Z79.899 Other long term (current) drug therapy; I25.5 Ischemic cardiomyopathy; E66.9 Obesity, unspecified; N50.89 Other specified disorders of the male genital organs; I34.0 Nonrheumatic mitral (valve) insufficiency; I51.7 Cardiomegaly; Z20.822 Contact with and (suspected) exposure to COVID-19; E11.65 Type 2 diabetes mellitus with hyperglycemia; E11.51 Type 2 diabetes mellitus with diabetic peripheral angiopathy without gangrene; Z89.512 Acquired absence of left leg below knee; Z68.41 Body mass index [BMI] 40.0-44.9, adult; Z95.1 Presence of aortocoronary bypass graft; L03.116 Cellulitis of left lower limb
CPT/HCPCS: G0378; 36415; 51702; 71045; 74176; 74177; 76870; 80048; 80053; 80061; 80076; 81001; 82962; 83036; 83880; 84145; 84436; 84443; 84484; 85025; 85651; 86140; 93005; 93306; 93459; 94761; 99152; 99285; C1725; C1760; C1769; C1894; C9803; J1644; Q9967; U0003; U0005